=== PATIENT | male | born 1945 | race Caucasian/White ===

== ENCOUNTER 2016-06-30 10:54 | Inpatient (IN) | payer MEDICARE, BC ==
[~2016-06-30] VITALS: Ht 172.7 cm; Wt 114.0 kg
[2016-06-30] VITALS (12 sets, daily range): BP systolic 73–129; BP diastolic 41–62
[~2016-06-30 10:54] MED LIST: CEPH-264 PO; CIPR2.5D OU; FLUT16SP NS; FURO40TA4 PO; IPRA3AMP NEB; LISI-334 PO; METO25TA4 PO; MONT10TA9 PO; OXYC5TAB PO; POTA20TA4 PO
[2016-06-30] MEDS ORDERED: MULTIVITAMIN with MINERAL TABLET. PO STA (11:27)
[2016-06-30] MEDS ORDERED: THIAMINE 100 MG TABLET. PO STA (11:27)
[2016-06-30] MEDS ORDERED: fentaNYL PF VIAL 100 MCG/2 ML VIAL IV ONE (11:30)
[2016-06-30] MEDS ORDERED: ONDANSETRON PF 4 MG/2 ML VIAL. IV ONE (11:30)
[2016-06-30] MEDS ORDERED: MULTIVIT INFUSN,ADULT 4,VIT K 10 ML, FOLIC ACID 1 MG, THIAMINE 100 MG in IV NORMAL SALI... IV ONE (11:45)
[2016-06-30 11:52] LABS: BASO % 0 % (0-3); EOS % 1 % (0-3); HEMATOCRIT 39.3 % (39.0-53.0); HEMOGLOBIN 12.8 g/dL (13.0-17.5); LYMPH # 1.7 x10^3/uL (1.0-4.8); LYMPH % 26 % (24-48); MEAN CORPUSCULAR HEMOGLOBIN 33 pg (25-35); MEAN CORPUSCULAR HGB CONC 33 g/dL (31-37); MEAN CORPUSCULAR VOLUME 101 fL (79-100); MONO % 9 % (0-9); NEUT % 64 % (31-73); PLATELET COUNT 102 x10^3/uL (140-400); RED BLOOD COUNT 3.89 x10^6/uL (4.30-5.70); RED CELL DISTRIBUTION WIDTH 20.7 % (11.5-14.5); WHITE BLOOD COUNT 6.5 x10^3/uL (4.0-11.0)
[2016-06-30 12:01] LABS: PROTHROMBIN TIME PATIENT 12.9 SEC (11.7-14.0)
[2016-06-30 12:08] LABS: ALBUMIN 3.2 g/dL (3.4-5.0); ALBUMIN/GLOBULIN RATIO 0.6 (1.0-1.7); CALCIUM 9.3 mg/dL (8.5-10.1); CREATININE 3.7 mg/dL (0.7-1.3); GFR 16.4; MAGNESIUM 1.2 mg/dL (1.8-2.4); TOTAL BILIRUBIN 0.6 mg/dL (0.2-1.0); TOTAL PROTEIN 8.2 g/dL (6.4-8.2)
[2016-06-30 12:09] LABS: ETHANOL 35 mg/dL (0-10)
[2016-06-30 12:11] LABS: POTASSIUM 7.3 mmol/L (3.5-5.1)
[2016-06-30] MEDS ORDERED: IV NORMAL SALINE 1000ML BAG 1,000 ML IV ONE ×2 (12:30→17:00)
[2016-06-30] MEDS ORDERED: DEXTROSE 50% 25 GM / 50ML DISP.SYRIN. IV ONE (12:30)
[2016-06-30] MEDS ORDERED: ALBUTEROL SULFATE 2.5 MG/3 ML NEBU. NEB ONE (12:30)
[2016-06-30] MEDS ORDERED: CALCIUM GLUCONATE 1,000 MG in IV NORMAL SALINE 100ML 100 ML IV ONE (12:30)
[2016-06-30] MEDS ORDERED: CALCIUM GLUCONATE 100 MG/ML VIAL for DOSE IN MG. IVP ONE (12:30)
[2016-06-30] MEDS ORDERED: INSULIN REGULAR 100 UNIT/ML 10ML VIAL. IV ONE (12:30)
[2016-06-30] MEDS ORDERED: ONDANSETRON PF 4 MG/2 ML VIAL. IV PRN (12:45)
--- NOTE | 2016-06-30 12:50 | PHYS DOC ---
Past Medical History Past Medical History: Cancer, COPD, High Cholesterol, Hypertension, Other Additional Past Medical Histor: CA- LUNG,PROSTATE,COLON. HERNIA Past Surgical History: Colectomy, Tonsillectomy, Other Additional Past Surgical Histo: 1/3 left lung removed, ostomy, L THUMB Alcohol Use: Heavy Additional Information: PT REPORTS HE DRINKS A PINT TO A PINT AND A HALF DAILY, STATING HE HAS HAD ETOH TODAY. Drug Use: None Adult General Chief Complaint Chief Complaint: OTHER COMPLAINTS HPI HPI Patient is a 70 year old male brought by son for evaluation of increased rectal mucus diffuse body aches and weakness. Patient is an alcoholic. Drinks approximately a pint and a half a day and has continued drink alcohol with his last drink approximately 9 this morning. He says that he has had a poor appetite otherwise and has not eaten any food or drink anything besides alcohol in the past 2 days. He denies any fevers chills vomiting diarrhea dysuria cough chest pain shortness of breath or abdominal pain. He is in no obvious distress but slightly hypotensive but perfusing his extremities. Review of Systems Review of Systems Constitutional: Denies fever or chills [] Eyes: Denies change in visual acuity, redness, or eye pain [] HENT: Denies nasal congestion or sore throat [] Respiratory: Denies cough or shortness of breath [] Cardiovascular: No additional information not addressed in HPI [] GI: Denies abdominal pain. + nausea. No vomiting, bloody stools or diarrhea [] : Denies dysuria or hematuria [] Musculoskeletal: + myalgias and arthralgias Integument: Denies rash or skin lesions [] Neurologic: Denies headache, focal weakness or sensory changes [] Current Medications Current Medications Current Medications Medications (Trade) Dose Ordered Sig/[facility] Start Time Stop Time Status Last Admin Dose Admin Fentanyl Citrate (Fentanyl 2ml Vial) 50 mcg 1X ONCE 06/30/16 11:30 06/30/16 11:32 DC 06/30/16 11:52 50 MCG Multivitamins (Thera M Plus) 1 tab 1X STAT 06/30/16 11:27 06/30/16 11:28 UNV Multivitamins 10 ml/Folic Acid 1 mg/Thiamine HCl 100 mg/Sodium Chloride 1,011.2 ml @ 1,000 mls/ hr 1X ONCE 06/30/16 11:45 06/30/16 12:45 DC 06/30/16 11:54 1,000 MLS/HR Ondansetron HCl (Zofran) 8 mg 1X ONCE 06/30/16 11:30 06/30/16 11:32 DC 06/30/16 11:51 8 MG Thiamine Mononitrate (Vitamin B-1) 100 mg 1X STAT 06/30/16 11:27 06/30/16 11:28 UNV Allergies Allergies Allergies Coded Allergies Type Severity Reaction Last Updated Verified No Known Drug Allergies 06/29/15 No Physical Exam Physical Exam Constitutional: Chronically ill appearing male HENT: Normocephalic, atraumatic, bilateral external ears normal, oropharynx moist, no oral exudates, nose normal. [] Eyes: PERRLA, EOMI, conjunctiva normal, no discharge. [] Neck: Normal range of motion, no tenderness, supple, no stridor. [] Cardiovascular:Heart rate regular rhythm, no murmur [] Lungs & Thorax: Bilateral breath sounds clear to auscultation [] Abdomen: Ostomy in place with no stool and large midline hernia noted Skin: Warm, dry, no erythema, no rash. [] Back: No tenderness, no CVA tenderness. [] Extremities: No tenderness, no cyanosis, no clubbing, ROM intact, no edema. [] Neurologic: Alert and oriented X 3, normal motor function, normal sensory function, no focal deficits noted. [] Current Patient Data Vital Signs Vital Signs Date Time Temp Pulse Resp B/P (MAP) Pulse Ox O2 Delivery O2 Flow Rate FiO2 06/30/16 12:11 55 71/43 (52) Room Air 06/30/16 11:45 92 06/30/16 11:10 97.7 20 97.7 Lab Values Laboratory Tests Test 06/30/16 11:40 White Blood Count 6.5 x10^3/uL (4.0-11.0) Red Blood Count 3.89 x10^6/uL (4.30-5.70) L Hemoglobin 12.8 g/dL (13.0-17.5) L Hematocrit 39.3 % (39.0-53.0) Mean Corpuscular Volume 101 fL (79-100) H Mean Corpuscular Hemoglobin 33 pg (25-35) Mean Corpuscular Hemoglobin Concent 33 g/dL (31-37) Red Cell Distribution Width 20.7 % (11.5-14.5) H Platelet Count 102 x10^3/uL (140-400) L Neutrophils (%) (Auto) 64 % (31-73) Lymphocytes (%) (Auto) 26 % (24-48) Monocytes (%) (Auto) 9 % (0-9) Eosinophils (%) (Auto) 1 % (0-3) Basophils (%) (Auto) 0 % (0-3) Neutrophils # (Auto) 4.1 x10^3uL (1.8-7.7) Lymphocytes # (Auto) 1.7 x10^3/uL (1.0-4.8) Monocytes # (Auto) 0.6 x10^3/uL (0.0-1.1) Eosinophils # (Auto) 0.1 x10^3/uL (0.0-0.7) Basophils # (Auto) 0.0 x10^3/uL (0.0-0.2) Platelet Estimate Pending Prothrombin Time 12.9 SEC (11.7-14.0) Prothrombin Time INR 1.0 (0.8-1.1) PTT 26 SEC (24-38) Sodium Level 135 mmol/L (136-145) L Potassium Level 7.3 mmol/L (3.5-5.1) *H Chloride Level 102 mmol/L (98-107) Carbon Dioxide Level 18 mmol/L (21-32) L Anion Gap 15 (6-14) H Blood Urea Nitrogen 94 mg/dL (8-26) H Creatinine 3.7 mg/dL (0.7-1.3) H Estimated GFR (Cockcroft-Gault) 16.4 BUN/Creatinine Ratio 25 (6-20) H Glucose Level 88 mg/dL (70-99) Lactic Acid Level 2.6 mmol/L (0.4-2.0) H Calcium Level 9.3 mg/dL (8.5-10.1) Magnesium Level 1.2 mg/dL (1.8-2.4) L Total Bilirubin 0.6 mg/dL (0.2-1.0) Aspartate Amino Transferase (AST) 28 U/L (15-37) Alanine Aminotransferase (ALT) 25 U/L (16-63) Alkaline Phosphatase 68 U/L (46-116) Creatine Kinase 65 U/L (39-308) Troponin I Quantitative < 0.017 ng/mL (0.000-0.055) HP-Dbw-V-Type Natriuretic Peptide 84790 pg/mL (0-124) H Total Protein 8.2 g/dL (6.4-8.2) Albumin 3.2 g/dL (3.4-5.0) L Albumin/Globulin Ratio 0.6 (1.0-1.7) L Lipase 384 U/L (73-393) Thyroid Stimulating Hormone (TSH) 1.945 uIU/mL (0.358-3.74) Salicylates Level 3.7 mg/dL (2.8-20.0) Salicylate Last Dose Date Unknown Salicylate Last Dose Time Unknown Acetaminophen Level 4.5 mcg/ml (10-30) L Acetaminophen Last Dose Date Unknown Acetaminophen Last Dose Time Unknown Ethyl Alcohol Level 35 mg/dL (0-10) H Laboratory Tests 06/30/16 11:40 Laboratory Tests 06/30/16 11:40 EKG EKG Sinus rhythm at 56 bpm there is low voltage however T waves appear peaked in leads V4 V5 and V6 that his QRS is normal. Radiology/Procedures Radiology/Procedures [] Course & Med Decision Making Course & Med Decision Making Patient is critically ill and is dehydrated with acute renal failure. He does have some EKG changes so he is going to be treated aggressively with calcium insulin albuterol aggressive IV fluids. He will be admitted to the ICU with a nephrology consult. Patient continues to be slightly hypotensive but is perfusing his extremities well. Patient admitted in critical condition. Critical care time of 35 minutes. Dragon Disclaimer Dragon Disclaimer This electronic medical record was generated, in whole or in part, using a voice recognition dictation system. Departure Departure Impression: Primary Impression: Hyperkalemia Additional Impressions: ARF (acute renal failure) Hypomagnesemia Lactic acid acidosis Hypotension Disposition: ADMITTED INPATIENT Admitting Physician: Clare Man Condition: CRITICAL Referrals: CLARE MAN MD (PCP) Problem Qualifiers KERRI HESTER DO June 30, 2016 12:50
--- NOTE | 2016-06-30 12:52 | ACF ---
Admission Forms Criteria HYPONATREMIA; HYPERNATREMIA; HYPOKALEMIA; HYPERKALEMIA; HYPOCALCEMIA; HYPERCALCEMIA Clinical Indications for Inpatient Care (Place 'X' for any and all applicable criteria): Ongoing inpatient care may be indicated for ANY ONE of the following [G](1)(2)(3 )(5): [ ]I. Hyponatremia with ANY ONE of the following: [ ]a) Sodium less than 130 mEq/L (mmol/L) (new) (6)(22) [ ]b) Sodium less than 135 mEq/L (mmol/L) with ANY ONE of the following: [ ]i) Severe medical etiology requiring inpatient management (eg, heart failure, hypovolemia) [ ]ii) Altered mental status [ ]iii) Seizures [ ]II. Hypernatremia with ANY ONE of the following: [ ]a) Sodium greater than 155 mEq/L (mmol/L) [ ]b) Sodium greater than 150 mEq/L (mmol/L) with ANY ONE of the following: [ ] i) Altered mental status [ ]ii) Seizures [ ]iii) Severe medical etiology (eg, hypovolemia, diabetes insipidus) [ ]iv) Severe weakness [ ]v) Severe medical etiology (eg, hemolysis, infection, drug overdose) [ ]III. Hypokalemia with ANY ONE of the following: [ ]a) Potassium less than 2.5 mEq/L (mmol/L) despite outpatient and emergency treatment [ ]b) Potassium less than 3.0 mEq/L (mmol/L) with ANY ONE of the following: [ ]i) Weakness [ ]ii) Cardiac abnormality (eg, arrhythmia, conduction disturbance) [ ]iii) Cardiac ischemia [ ]iv) Ileus [ ]v) Ongoing medical cause requiring inpatient management. ( e.g., acute renal wasting, SIADH) [ ]vi) Other severe symptoms [X] IV. Hyperkalemia with ANY ONE of the following: [X]a) Potassium greater than 6.5 mEq/L (mmol/L) [ ]b) Potassium greater than 5 mEq/L (mmol/L) with ANY ONE of the following: [ ]i) Severe ECG findings [H] [ ]ii) Acute worsening of renal failure (creatinine greater than 2.5 mg/dL (221 micromoles/L) or significant elevation for age and size) [ ] V. Hypocalcemia with ANY ONE of the following: [ ]a) Calcium less than 7 mg/dL (1.75 mmol/L) despite outpatient and emergency treatment(19) [ ]b) Calcium less than 8 mg/dL (2 mmol/L) with significant symptoms or findings; examples include: [ ]i) Cardiac abnormality (eg, arrhythmia or conduction disturbance) [ ]ii) Altered mental status [ ]iii) Seizures [ ]iv) Breathing difficulty [ ]v) Muscle spasms [ ]. Hypercalcemia with ANY ONE of the following: [ ]a) Calcium greater than 14 mg/dL (3.5 mmol/L) [ ]b) Calcium greater than 12 mg/dL (3 mmol/L) with ANY ONE of the following: [ ]i) Significant dehydration or hypovolemia as indicated by ANY ONE of the following(2): [ ]1. Clinically significant dehydration as indicated by ANY ONE of the following: [ ]A. Acute loss of weight from baseline (5% of body weight in adults, 9% in pediatric patients) [ ]B. Hemodynamic instability [ ]C. Acute renal failure [ ]D. Serum sodium greater than 150 mEq/L (mmol/L) [ ]2) Dehydration that is persistent indicated by ALL of the following: [ ]A. Oral rehydration therapy not tolerated or insufficient to adequately correct dehydration [ ]B. Appropriate intravenous treatment (eg, fluids ) does not readily correct dehydration ie, after 12 to 24 hours of treatment) [ ]ii) Significant symptoms or findings; examples include: [ ]1) Altered mental status [ ]2) Cardiac abnormality (eg, arrhythmia, conduction disturbance) [ ]3) Cardiac abnormality (eg, arrhythmia, conduction disturbance) The original [employer] [facility] content created by [employer] [facility] has been revised. The portions of the content which have been revised are identified through the use of italic text or in bold, and [facility] has neither reviewed nor approved the modified material. All other unmodified content is copyright [facility] [employer] Please see references footnoted in the original [facility] [email or web address] edition 2016 Admission Criteria Met?: Yes JAK ROLDAN June 30, 2016 12:52
[2016-06-30 13:13] LABS: BILIRUBIN,URINE MODERATE (NEG); GLUCOSE,URINE NEGATIVE (NEG); NITRITE,URINE NEGATIVE (NEG); PH,URINE 5.5; PROTEIN,URINE 100 mg/dL (NEG-TRACE)
[2016-06-30 13:19] LABS: BARBITURATES NEG (NEG); BENZODIAZEPINES NEG (NEG); CANNABINOIDS NEG (NEG); COCAINE NEG (NEG); METHADONE NEG (NEG); OPIATES NEG (NEG); PHENCYCLIDINE NEG (NEG)
[2016-06-30 13:37] LABS: BACTERIA,URINE 0 /HPF (0-FEW); RBC,URINE 0 /HPF (0-2)
[2016-06-30 13:38] LABS: SQUAMOUS EPITHELIAL CELL,UR FEW /LPF
[2016-06-30] MEDS: IV NORMAL SALINE 1000ML BAG 1,000 ML IV SCH ×3 (14:17→23:29)
[2016-06-30] MEDS ORDERED: PNEUMOCOCCAL VAX SCREEN BY RX. MC ONE (14:45)
[2016-06-30] MEDS: SODIUM BICARBONATE VIAL 50 MEQ in IV 1/2 NORMAL SALINE 1,000 ML IV SCH ×2 (14:52→22:32)
--- NOTE | 2016-06-30 15:13 | EKG ---
[facility] [address] [place] [id number] Test Date: 2016-06-30 Test Time: 11:33:52 Pat Name: DIXON PRINCE Department: Room: 102 1 Gender: M [employer] T[employer]: : 1945 Requested By: KERRI HESTER Order Number: [id number] Reading MD: Cat Marshall Measurements Intervals [place] Rate: 56 P: 39 TN: 136 QRS: -48 QRSD: 82 T: 27 QT: 416 QTc: 404 Interpretive Statements SINUS RHYTHM ABNORMAL LEFT AXIS DEVIATION LOW LIMB LEAD VOLTAGE LEFT ANTERIOR FASCICULAR BLOCK Electronically Signed On 07-02-2016 21:20:35 CDT by Cat Marshall
[2016-06-30] MEDS ORDERED: PNEUMOC CONJ VACC 23-VALENT 0.5 ML VIAL. VAX IM ONE (15:30)
[2016-06-30] MEDS ORDERED: LORazepam 1 MG TABLET PO SCH (15:30)
[2016-06-30] MEDS ORDERED: chlordiazePOXIDE HCL 25 MG CAPSULE PO SCH (16:00)
[2016-06-30 16:23] LABS: ANISOCYTOSIS MOD; PLT ESTIMATE DECREASED (ADEQUATE); POLYCHROMASIA SLIGHT
[2016-06-30] MEDS ORDERED: NOREPINEPHRIN PREMIX 250 ML IV PRN (17:00)
[2016-06-30] MEDS: fentaNYL PF VIAL 100 MCG/2 ML VIAL IV PRN ×2 (17:18→21:34)
[2016-06-30] MEDS: LORazepam 1 MG TABLET PO SCH ×2 (17:58→23:29)
[2016-07-01] VITALS (25 sets, daily range): BP systolic 64–134; BP diastolic 40–72
[2016-07-01] MEDS: fentaNYL PF VIAL 100 MCG/2 ML VIAL IV PRN ×3 (00:06→22:41)
[2016-07-01] MEDS: IV NORMAL SALINE 1000ML BAG 1,000 ML IV SCH ×2 (04:55→09:00)
[2016-07-01] MEDS: SODIUM BICARBONATE VIAL 50 MEQ in IV 1/2 NORMAL SALINE 1,000 ML IV SCH ×3 (05:34→20:11)
[2016-07-01 05:41] LABS: BASO % 0 % (0-3); EOS % 3 % (0-3); HEMOGLOBIN 10.9 g/dL (13.0-17.5); LYMPH # 1.3 x10^3/uL (1.0-4.8); LYMPH % 29 % (24-48); MEAN CORPUSCULAR HEMOGLOBIN 34 pg (25-35); MEAN CORPUSCULAR HGB CONC 34 g/dL (31-37); MEAN CORPUSCULAR VOLUME 99 fL (79-100); MONO % 8 % (0-9); NEUT % 61 % (31-73); PLATELET COUNT 74 x10^3/uL (140-400); RED BLOOD COUNT 3.22 x10^6/uL (4.30-5.70); RED CELL DISTRIBUTION WIDTH 20.4 % (11.5-14.5); WHITE BLOOD COUNT 4.5 x10^3/uL (4.0-11.0)
[2016-07-01] MEDS: LORazepam 1 MG TABLET PO SCH ×3 (05:41→17:23)
[2016-07-01 05:52] LABS: ALBUMIN 2.6 g/dL (3.4-5.0); ALBUMIN/GLOBULIN RATIO 0.7 (1.0-1.7); GFR 33.4; TOTAL BILIRUBIN 0.5 mg/dL (0.2-1.0); TOTAL PROTEIN 6.6 g/dL (6.4-8.2)
[2016-07-01 06:05] LABS: POTASSIUM 5.6 mmol/L (3.5-5.1)
[2016-07-01] MEDS ORDERED: MAGNESIUM SULFATE 2GM 50 ML IV ONE (08:30)
[2016-07-01] MEDS: MULTIVIT INFUSN,ADULT 4,VIT K 10 ML, THIAMINE 100 MG, FOLIC ACID 1 MG in IV NORMAL SALI... IV SCH ×2 (08:45→09:15)
[2016-07-01] MEDS ORDERED: THIAMINE 100 MG in IV NORMAL SALINE 50ML 50 ML IV SCH (09:00)
--- NOTE | 2016-07-01 10:46 | PDOC2 ---
CONSULT Date of Consult Date of Consult DATE: 07/01/16 TIME: 10:41 Reason for Consult Reason for Consult: FABIOLA AND HIGH K Referring Physician Referring Physician: MAGDA Identification/Chief Complaint Chief Complaint WEAKNESS Source Source: Chart review History of Present Illness Reason for Visit: THIS IS A 70 YR OLD ADMITTED WITH FABIOLA AND DEHYDRATION. COMPLAINED OF WEAKNESS. PT BROUGHT IN BY HIS SON. PT IS AN ALCOHOLIC AND DRINKS DAILY. APPARENTLY HAS NOT BEEN EATING BUT DRINKING DAILY. ON ADMIT HE APPEARED VERY DEHYDRATED. LABS SHOWED FABIOLA WITH CR OF 3.7 AND HYPERKALEMIA. NO CKD NOTED. HE WAS ALSO SOMEWHAT HYPOTENSIVE ON ADMIT Past Medical History Cardiovascular: No pertinent hx Pulmonary: COPD CENTRAL NERVOUS SYSTEM: Other GI: Other Heme/Onc: Cancer Hepatobiliary: No pertinent hx Psych: Addictions Musculoskeletal: Swelling, Other Rheumatologic: No pertinent hx Infectious disease: No pertinent hx Renal/: Prostate Ca. Endocrine: No pertinent hx Past Surgical History Past Surgical History: Tonsillectomy, Colectomy Family History Family History: Hypertension Social History ALCOHOL: heavy Drugs: None Lives: with Family Current Problem List Problem List Problems Medical Problems: (1) ARF (acute renal failure) Status: Acute (2) Hypomagnesemia Status: Acute (3) Hypotension Status: Acute (4) Lactic acid acidosis Status: Acute Current Medications Current Medications Current Medications Multivitamins 10 ml/Folic Acid 1 mg/Thiamine HCl 100 mg/Sodium Chloride 1,011.2 ml @ 1,000 mls/ hr 1X ONCE IV Last administered on 06/30/16 11:54; Start at 11:45; Stop 06/30/16 at 12:45; Status DC Thiamine Mononitrate (Vitamin B-1) 100 mg 1X STAT PO ; Start 06/30/16 at 11:27 ; Stop 06/30/16 at 11:28; Status UNV Multivitamins (Thera M Plus) 1 tab 1X STAT PO ; Start 06/30/16 at 11:27; Stop 06/30/16 at 11:28; Status UNV Ondansetron HCl (Zofran) 8 mg 1X ONCE IV Last administered on 06/30/16 11:51 ; Start 06/30/16 at 11:30; Stop 06/30/16 at 11:32; Status DC Fentanyl Citrate (Fentanyl 2ml Vial) 50 mcg 1X ONCE IV Last administered on 11:52; Start 06/30/16 at 11:30; Stop 06/30/16 at 11:32; Status DC Albuterol Sulfate (Ventolin Neb Soln) 2.5 mg 1X ONCE NEB Last administered on 06/30/16 13:02; Start 06/30/16 at 12:30; Stop 06/30/16 at 12:31; Status DC Sodium Chloride 1,000 ml @ 1,000 mls/hr 1X ONCE IV Last administered on 13:13; Start 06/30/16 at 12:30; Stop 06/30/16 at 13:29; Status DC Dextrose (Dextrose 50%-Water Syringe) 25 gm 1X ONCE IV Last administered on 12:47; Start 06/30/16 at 12:30; Stop 06/30/16 at 12:31; Status DC Insulin Human Regular (NovoLIN R VIAL) 10 unit 1X ONCE IV Last administered on 06/30/16 12:50; Start 06/30/16 at 12:30; Stop 06/30/16 at 12:31; Status DC Calcium Gluconate (Calcium Gluconate) 1,000 mg 1X ONCE IVP ; Start 06/30/16 at 12:30; Stop 06/30/16 at 12:31; Status UNV Calcium Gluconate 1000 mg/Sodium Chloride 110 ml @ 440 mls/hr 1X ONCE IV Last administered on 06/30/16 12:51; Start 06/30/16 at 12:30; Stop 06/30/16 at 12:44; Status DC Ondansetron HCl (Zofran) 4 mg PRN Q8HRS PRN IV NAUSEA/VOMITING Last administered on 06/30/16 15:09; Start 06/30/16 at 12:45; Stop 07/01/16 at 12:44 Fentanyl Citrate (Fentanyl 2ml Vial) 50 mcg PRN Q2HR PRN IV PAIN Last administered on 07/01/16 03:55; Start 06/30/16 at 12:45; Stop 07/01/16 at 12:44 Sodium Chloride 1,000 ml @ 200 mls/hr Q5H IV Last administered on 07/01/16 04 :55; Start 06/30/16 at 13:00; Stop 5/21/17 at 10:25; Status DC Sodium Bicarbonate 50 meq/Sodium Chloride 1,050 ml @ 150 mls/hr Q7H IV Last administered on 07/01/16 05:34; Start 06/30/16 at 14:30 Pneumococcal Polyvalent Vaccine (Do NOT chart on this placeholder) 1 each 1X ONCE MC ; Start 06/30/16 at 14:45; Stop 06/30/16 at 15:17; Status DC Pneumococcal Polyvalent Vaccine (Pneumovax 23) 0.5 ml ONCE ONCE VAX IM ; Start 06/30/16 at 15:30; Stop 06/30/16 at 15:31; Status DC Multivitamins 10 ml/Thiamine HCl 100 mg/Folic Acid 1 mg/Sodium Chloride 1,011.2 ml @ 100 mls/ hr DAILY IV Last administered on 07/01/16 09:15; Start at 09:00; Stop 07/06/16 at 08:59 Multivitamins (Thera M Plus) 1 tab DAILY PO ; Start 07/06/16 at 09:00 Folic Acid (Folic Acid) 1 mg DAILY PO ; Start 07/06/16 at 09:00 Thiamine HCl 100 mg/Sodium Chloride 51 ml @ 100 mls/hr DAILY IV ; Start at 09:00; Stop 07/06/16 at 08:59; Status UNV Lorazepam (Ativan) 2 mg Q6H PO ; Start 06/30/16 at 15:30; Stop 06/30/16 at 16:28 ; Status DC Chlordiazepoxide (Librium) 25 mg Q6H PO ; Start 06/30/16 at 16:00; Stop at 18:13; Status DC Thiamine Mononitrate (Vitamin B-1) 100 mg DAILY PO ; Start 07/06/16 at 09:00 Norepinephrine Bitartrate 250 ml @ 0 mls/hr CONT PRN IV SEE I/O RECORD Last administered on 06/30/16 17:37; Start 06/30/16 at 17:00 Sodium Chloride 1,000 ml @ 1,000 mls/hr 1X ONCE IV Last administered on 17:29; Start 06/30/16 at 17:00; Stop 06/30/16 at 17:59; Status DC Lorazepam (Ativan) 2 mg Q6H PO Last administered on 07/01/16 05:41; Start at 18:00; Stop 07/02/16 at 00:01 Magnesium Sulfate/ Dextrose 50 ml @ 25 mls/hr 1X ONCE IV Last administered on 07/01/16 09:48; Start 07/01/16 at 08:30; Stop 07/01/16 at 10:29; Status DC Active Scripts Active Klor-Con M20 (Potassium Chloride) 20 Meq Tab.er.prt 20 Meq PO BIDWMEALS Montelukast Sodium Tablet (Montelukast Sodium) 10 Mg Tablet 10 Mg PO QHS Metoprolol Tartrate 25 Mg Tablet 50 Mg PO BID Lisinopril 20 Mg Tablet 20 Mg PO DAILY Furosemide 40 Mg Tablet 40 Mg PO DAILY Allergies Allergies: Coded Allergies: No Known Drug Allergies (Unverified , 06/29/15) ROS Review of System SOMNOLENT, UNABLE TO OBTAIN Physical Exam General: No acute distress HEENT: Atraumatic, PERRLA, Other (DRY MUCOSA) Lungs: Clear to auscultation Heart: Regular rate, Normal S1, Normal S2 Abdomen: Normal bowel sounds, Soft, No tenderness Extremities: No clubbing Neuro: Other (SOMNOLENT) Psych/Mental Status: Other (SOMNOLENT) MUSCULOSKELETAL: No deformity Vitals VITALS Vital Signs Date Time Temp Pulse Resp B/P (MAP) Pulse Ox O2 Delivery O2 Flow Rate FiO2 07/01/16 10:34 94 19 64/40 (48) 98 Nasal Cannula 3.0 07/01/16 07:35 98.0 98.0 Labs Labs Laboratory Tests Test 06/30/16 11:40 06/30/16 13:00 06/30/16 14:10 06/30/16 17:20 White Blood Count 6.5 x10^3/uL (4.0-11.0) Red Blood Count 3.89 x10^6/uL (4.30-5.70) Hemoglobin 12.8 g/dL (13.0-17.5) Hematocrit 39.3 % (39.0-53.0) Mean Corpuscular Volume 101 fL (79-100) Mean Corpuscular Hemoglobin 33 pg (25-35) Mean Corpuscular Hemoglobin Concent 33 g/dL (31-37) Red Cell Distribution Width 20.7 % (11.5-14.5) Platelet Count 102 x10^3/uL (140-400) Neutrophils (%) (Auto) 64 % (31-73) Lymphocytes (%) (Auto) 26 % (24-48) Monocytes (%) (Auto) 9 % (0-9) Eosinophils (%) (Auto) 1 % (0-3) Basophils (%) (Auto) 0 % (0-3) Neutrophils # (Auto) 4.1 x10^3uL (1.8-7.7) Lymphocytes # (Auto) 1.7 x10^3/uL (1.0-4.8) Monocytes # (Auto) 0.6 x10^3/uL (0.0-1.1) Eosinophils # (Auto) 0.1 x10^3/uL (0.0-0.7) Basophils # (Auto) 0.0 x10^3/uL (0.0-0.2) Platelet Estimate Decreased (ADEQUATE) Polychromasia Slight Anisocytosis Mod Macrocytosis Slight Prothrombin Time 12.9 SEC (11.7-14.0) Prothromb Time International Ratio 1.0 (0.8-1.1) Activated Partial Thromboplast Time 26 SEC (24-38) Sodium Level 135 mmol/L (136-145) Potassium Level 7.3 mmol/L (3.5-5.1) 6.0 mmol/L (3.5-5.1) 6.1 mmol/L (3.5-5.1) Chloride Level 102 mmol/L (98-107) Carbon Dioxide Level 18 mmol/L (21-32) Anion Gap 15 (6-14) Blood Urea Nitrogen 94 mg/dL (8-26) Creatinine 3.7 mg/dL (0.7-1.3) Estimated GFR (Cockcroft-Gault) 16.4 BUN/Creatinine Ratio 25 (6-20) Glucose Level 88 mg/dL (70-99) Lactic Acid Level 2.6 mmol/L (0.4-2.0) Calcium Level 9.3 mg/dL (8.5-10.1) Magnesium Level 1.2 mg/dL (1.8-2.4) Total Bilirubin 0.6 mg/dL (0.2-1.0) Aspartate Amino Transf (AST/SGOT) 28 U/L (15-37) Alanine Aminotransferase (ALT/SGPT) 25 U/L (16-63) Alkaline Phosphatase 68 U/L (46-116) Creatine Kinase 65 U/L (39-308) Troponin I Quantitative < 0.017 ng/mL (0.000-0.055) AD-Ycf-L-Type Natriuretic Peptide 40405 pg/mL (0-124) Total Protein 8.2 g/dL (6.4-8.2) Albumin 3.2 g/dL (3.4-5.0) Albumin/Globulin Ratio 0.6 (1.0-1.7) Lipase 384 U/L (73-393) Thyroid Stimulating Hormone (TSH) 1.945 uIU/mL (0.358-3.74) Salicylates Level 3.7 mg/dL (2.8-20.0) Salicylate Last Dose Date Unknown Salicylate Last Dose Time Unknown Acetaminophen Level 4.5 mcg/ml (10-30) Acetaminophen Last Dose Date Unknown Acetaminophen Last Dose Time Unknown Ethyl Alcohol Level 35 mg/dL (0-10) Urine Collection Type Unknown Urine Color Yellow Urine Clarity Clear Urine pH 5.5 Urine Specific [place] 1.020 Urine Protein 100 mg/dL (NEG-TRACE) Urine Glucose (UA) Negative mg/dL (NEG) Urine Ketones (Stick) Trace mg/dL (NEG) Urine Blood Trace (NEG) Urine Nitrite Negative (NEG) Urine Bilirubin Moderate (NEG) Urine Urobilinogen Dipstick 1.0 mg/dL (0.2 mg/dL) Urine Leukocyte Esterase Negative (NEG) Urine RBC 0 /HPF (0-2) Urine WBC 1-4 /HPF (0-4) Urine Squamous Epithelial Cells Few /LPF Urine Transitional Epithelial Cells Few /LPF Urine Amorphous Sediment Present /HPF Urine Bacteria 0 /HPF (0-FEW) Urine Hyaline Casts Moderate /HPF Urine Granular Casts Few /HPF Urine Opiates Screen Neg (NEG) Urine Methadone Screen Neg (NEG) Urine Barbiturates Neg (NEG) Urine Phencyclidine Screen Neg (NEG) Urine Amphetamine/Methamphetamine Neg (NEG) Urine Benzodiazepines Screen Neg (NEG) Urine Cocaine Screen Neg (NEG) Urine Cannabinoids Screen Neg (NEG) Urine Ethyl Alcohol Pos (NEG) Test 06/30/16 18:59 07/01/16 05:10 Lactic Acid Level 1.1 mmol/L (0.4-2.0) White Blood Count 4.5 x10^3/uL (4.0-11.0) Red Blood Count 3.22 x10^6/uL (4.30-5.70) Hemoglobin 10.9 g/dL (13.0-17.5) Hematocrit 32.0 % (39.0-53.0) Mean Corpuscular Volume 99 fL (79-100) Mean Corpuscular Hemoglobin 34 pg (25-35) Mean Corpuscular Hemoglobin Concent 34 g/dL (31-37) Red Cell Distribution Width 20.4 % (11.5-14.5) Platelet Count 74 x10^3/uL (140-400) Neutrophils (%) (Auto) 61 % (31-73) Lymphocytes (%) (Auto) 29 % (24-48) Monocytes (%) (Auto) 8 % (0-9) Eosinophils (%) (Auto) 3 % (0-3) Basophils (%) (Auto) 0 % (0-3) Neutrophils # (Auto) 2.7 x10^3uL (1.8-7.7) Lymphocytes # (Auto) 1.3 x10^3/uL (1.0-4.8) Monocytes # (Auto) 0.4 x10^3/uL (0.0-1.1) Eosinophils # (Auto) 0.1 x10^3/uL (0.0-0.7) Basophils # (Auto) 0.0 x10^3/uL (0.0-0.2) Sodium Level 137 mmol/L (136-145) Potassium Level 5.6 mmol/L (3.5-5.1) Chloride Level 106 mmol/L (98-107) Carbon Dioxide Level 21 mmol/L (21-32) Anion Gap 10 (6-14) Blood Urea Nitrogen 69 mg/dL (8-26) Creatinine 2.0 mg/dL (0.7-1.3) Estimated GFR (Cockcroft-Gault) 33.4 BUN/Creatinine Ratio 35 (6-20) Glucose Level 97 mg/dL (70-99) Calcium Level 8.0 mg/dL (8.5-10.1) Magnesium Level 1.0 mg/dL (1.8-2.4) Total Bilirubin 0.5 mg/dL (0.2-1.0) Aspartate Amino Transf (AST/SGOT) 25 U/L (15-37) Alanine Aminotransferase (ALT/SGPT) 21 U/L (16-63) Alkaline Phosphatase 54 U/L (46-116) Total Protein 6.6 g/dL (6.4-8.2) Albumin 2.6 g/dL (3.4-5.0) Albumin/Globulin Ratio 0.7 (1.0-1.7) Laboratory Tests Test 06/30/16 11:40 06/30/16 13:00 06/30/16 14:10 06/30/16 17:20 White Blood Count 6.5 x10^3/uL (4.0-11.0) Red Blood Count 3.89 x10^6/uL (4.30-5.70) Hemoglobin 12.8 g/dL (13.0-17.5) Hematocrit 39.3 % (39.0-53.0) Mean Corpuscular Volume 101 fL (79-100) Mean Corpuscular Hemoglobin 33 pg (25-35) Mean Corpuscular Hemoglobin Concent 33 g/dL (31-37) Red Cell Distribution Width 20.7 % (11.5-14.5) Platelet Count 102 x10^3/uL (140-400) Neutrophils (%) (Auto) 64 % (31-73) Lymphocytes (%) (Auto) 26 % (24-48) Monocytes (%) (Auto) 9 % (0-9) Eosinophils (%) (Auto) 1 % (0-3) Basophils (%) (Auto) 0 % (0-3) Neutrophils # (Auto) 4.1 x10^3uL (1.8-7.7) Lymphocytes # (Auto) 1.7 x10^3/uL (1.0-4.8) Monocytes # (Auto) 0.6 x10^3/uL (0.0-1.1) Eosinophils # (Auto) 0.1 x10^3/uL (0.0-0.7) Basophils # (Auto) 0.0 x10^3/uL (0.0-0.2) Platelet Estimate Decreased (ADEQUATE) Polychromasia Slight Anisocytosis Mod Macrocytosis Slight Prothrombin Time 12.9 SEC (11.7-14.0) Prothromb Time International Ratio 1.0 (0.8-1.1) Activated Partial Thromboplast Time 26 SEC (24-38) Sodium Level 135 mmol/L (136-145) Potassium Level 7.3 mmol/L (3.5-5.1) 6.0 mmol/L (3.5-5.1) 6.1 mmol/L (3.5-5.1) Chloride Level 102 mmol/L (98-107) Carbon Dioxide Level 18 mmol/L (21-32) Anion Gap 15 (6-14) Blood Urea Nitrogen 94 mg/dL (8-26) Creatinine 3.7 mg/dL (0.7-1.3) Estimated GFR (Cockcroft-Gault) 16.4 BUN/Creatinine Ratio 25 (6-20) Glucose Level 88 mg/dL (70-99) Lactic Acid Level 2.6 mmol/L (0.4-2.0) Calcium Level 9.3 mg/dL (8.5-10.1) Magnesium Level 1.2 mg/dL (1.8-2.4) Total Bilirubin 0.6 mg/dL (0.2-1.0) Aspartate Amino Transf (AST/SGOT) 28 U/L (15-37) Alanine Aminotransferase (ALT/SGPT) 25 U/L (16-63) Alkaline Phosphatase 68 U/L (46-116) Creatine Kinase 65 U/L (39-308) Troponin I Quantitative < 0.017 ng/mL (0.000-0.055) WE-Xbg-A-Type Natriuretic Peptide 61047 pg/mL (0-124) Total Protein 8.2 g/dL (6.4-8.2) Albumin 3.2 g/dL (3.4-5.0) Albumin/Globulin Ratio 0.6 (1.0-1.7) Lipase 384 U/L (73-393) Thyroid Stimulating Hormone (TSH) 1.945 uIU/mL (0.358-3.74) Salicylates Level 3.7 mg/dL (2.8-20.0) Salicylate Last Dose Date Unknown Salicylate Last Dose Time Unknown Acetaminophen Level 4.5 mcg/ml (10-30) Acetaminophen Last Dose Date Unknown Acetaminophen Last Dose Time Unknown Ethyl Alcohol Level 35 mg/dL (0-10) Urine Collection Type Unknown Urine Color Yellow Urine Clarity Clear Urine pH 5.5 Urine Specific [place] 1.020 Urine Protein 100 mg/dL (NEG-TRACE) Urine Glucose (UA) Negative mg/dL (NEG) Urine Ketones (Stick) Trace mg/dL (NEG) Urine Blood Trace (NEG) Urine Nitrite Negative (NEG) Urine Bilirubin Moderate (NEG) Urine Urobilinogen Dipstick 1.0 mg/dL (0.2 mg/dL) Urine Leukocyte Esterase Negative (NEG) Urine RBC 0 /HPF (0-2) Urine WBC 1-4 /HPF (0-4) Urine Squamous Epithelial Cells Few /LPF Urine Transitional Epithelial Cells Few /LPF Urine Amorphous Sediment Present /HPF Urine Bacteria 0 /HPF (0-FEW) Urine Hyaline Casts Moderate /HPF Urine Granular Casts Few /HPF Urine Opiates Screen Neg (NEG) Urine Methadone Screen Neg (NEG) Urine Barbiturates Neg (NEG) Urine Phencyclidine Screen Neg (NEG) Urine Amphetamine/Methamphetamine Neg (NEG) Urine Benzodiazepines Screen Neg (NEG) Urine Cocaine Screen Neg (NEG) Urine Cannabinoids Screen Neg (NEG) Urine Ethyl Alcohol Pos (NEG) Test 06/30/16 18:59 07/01/16 05:10 Lactic Acid Level 1.1 mmol/L (0.4-2.0) White Blood Count 4.5 x10^3/uL (4.0-11.0) Red Blood Count 3.22 x10^6/uL (4.30-5.70) Hemoglobin 10.9 g/dL (13.0-17.5) Hematocrit 32.0 % (39.0-53.0) Mean Corpuscular Volume 99 fL (79-100) Mean Corpuscular Hemoglobin 34 pg (25-35) Mean Corpuscular Hemoglobin Concent 34 g/dL (31-37) Red Cell Distribution Width 20.4 % (11.5-14.5) Platelet Count 74 x10^3/uL (140-400) Neutrophils (%) (Auto) 61 % (31-73) Lymphocytes (%) (Auto) 29 % (24-48) Monocytes (%) (Auto) 8 % (0-9) Eosinophils (%) (Auto) 3 % (0-3) Basophils (%) (Auto) 0 % (0-3) Neutrophils # (Auto) 2.7 x10^3uL (1.8-7.7) Lymphocytes # (Auto) 1.3 x10^3/uL (1.0-4.8) Monocytes # (Auto) 0.4 x10^3/uL (0.0-1.1) Eosinophils # (Auto) 0.1 x10^3/uL (0.0-0.7) Basophils # (Auto) 0.0 x10^3/uL (0.0-0.2) Sodium Level 137 mmol/L (136-145) Potassium Level 5.6 mmol/L (3.5-5.1) Chloride Level 106 mmol/L (98-107) Carbon Dioxide Level 21 mmol/L (21-32) Anion Gap 10 (6-14) Blood Urea Nitrogen 69 mg/dL (8-26) Creatinine 2.0 mg/dL (0.7-1.3) Estimated GFR (Cockcroft-Gault) 33.4 BUN/Creatinine Ratio 35 (6-20) Glucose Level 97 mg/dL (70-99) Calcium Level 8.0 mg/dL (8.5-10.1) Magnesium Level 1.0 mg/dL (1.8-2.4) Total Bilirubin 0.5 mg/dL (0.2-1.0) Aspartate Amino Transf (AST/SGOT) 25 U/L (15-37) Alanine Aminotransferase (ALT/SGPT) 21 U/L (16-63) Alkaline Phosphatase 54 U/L (46-116) Total Protein 6.6 g/dL (6.4-8.2) Albumin 2.6 g/dL (3.4-5.0) Albumin/Globulin Ratio 0.7 (1.0-1.7) Assessment/Plan Assessment/Plan IMP FABIOLA WITH NO CKD HX DEHYDRATION HYPOTENSION ALCOHOL ABUSE HYPERKALEMIA LOW MAG OSTOMY HX PLAN HCO3 GTT DAILY BANANA BAG REPLACE MAG EXPECT FULL RENAL RECOVERY HOLD HOME MEDS. LASIX, KCL AND LISINOPRIL KASHMIR MANZO MD July 01, 2016 10:46
--- NOTE | 2016-07-01 12:26 | PDOC ---
OBJECTIVE Vital Signs Vital Signs Date Time Temp Pulse Resp B/P (MAP) Pulse Ox O2 Delivery O2 Flow Rate FiO2 07/01/16 10:45 82 17 114/61 (78) 98 Nasal Cannula 3.0 07/01/16 10:34 94 19 64/40 (48) 98 Nasal Cannula 3.0 07/01/16 10:15 94 19 90/40 (57) 98 Nasal Cannula 3.0 07/01/16 10:00 95 19 93/47 (62) 96 Nasal Cannula 3.0 07/01/16 08:20 96 19 126/58 (80) 96 Nasal Cannula 3.0 07/01/16 08:00 Nasal Cannula 3.0 07/01/16 07:35 98.0 110 19 116/55 (75) 98 Nasal Cannula 3.0 98.0 07/01/16 07:00 102 18 100/54 (69) 96 Nasal Cannula 3.0 07/01/16 06:00 111 19 111/52 (71) 96 Nasal Cannula 2.0 07/01/16 05:00 92 20 116/69 (85) 97 Nasal Cannula 2.0 07/01/16 04:00 94 16 108/49 (68) 97 Nasal Cannula 2.0 07/01/16 04:00 Nasal Cannula 2.0 07/01/16 03:55 22 98 Nasal Cannula 2.0 07/01/16 03:00 97.8 88 16 97 Nasal Cannula 2.0 97.8 07/01/16 02:00 89 17 103/47 (65) 93 Nasal Cannula 2.0 07/01/16 01:00 90 22 127/72 (90) 98 Nasal Cannula 3.0 07/01/16 00:06 24 97 Nasal Cannula 2.0 07/01/16 00:00 Nasal Cannula 3.0 07/01/16 00:00 88 21 124/63 (83) 95 Nasal Cannula 3.0 06/30/16 23:00 98.2 74 18 103/56 (72) 96 Nasal Cannula 2.0 98.2 06/30/16 22:04 95 Room Air 2.0 06/30/16 22:00 74 20 110/58 (75) 97 Nasal Cannula 2.0 06/30/16 21:34 25 95 Room Air 2.0 06/30/16 21:00 75 21 105/55 (72) 94 Room Air 2.0 5/20/17 20:00 Room Air 06/30/16 20:00 75 20 129/62 (84) 94 Nasal Cannula 2.0 06/30/16 19:00 98.4 79 20 114/58 (76) 92 Room Air 98.4 06/30/16 18:00 70 20 80/41 (54) 97 Room Air 06/30/16 17:48 20 06/30/16 17:18 16 Nasal Cannula 2.0 06/30/16 17:00 64 18 75/43 (54) 96 Room Air 06/30/16 16:00 97.8 62 17 73/42 (52) 96 Room Air 97.8 06/30/16 16:00 Nasal Cannula 1.0 06/30/16 15:00 60 16 74/41 (52) 98 Room Air 06/30/16 14:30 60 18 74/44 (54) 92 Nasal Cannula 1.0 06/30/16 14:00 Nasal Cannula 1.0 06/30/16 14:00 64 18 77/47 (57) 96 Nasal Cannula 1.0 06/30/16 13:30 97.7 72 18 79/44 (56) 98 Room Air 97.7 06/30/16 13:03 Room Air 06/30/16 12:56 64 96/46 (63) 06/30/16 12:41 59 81/44 (56) I & O Intake and Output 07/01/16 07:00 Intake Total 6176.09 ml Output Total 2980 ml Balance 3196.09 ml Intake Oral 50 ml IV Total 6126.09 ml Output Urine Total 2980 ml ASSESSMENT/PLAN Assessment/Plan [id number] H&P dictated Problems: COMMENT Lab Laboratory Tests Test 06/30/16 13:00 06/30/16 14:10 06/30/16 17:20 06/30/16 18:59 Urine Collection Type Unknown Urine Color Yellow Urine Clarity Clear Urine pH 5.5 Urine Specific [place] 1.020 Urine Protein 100 mg/dL (NEG-TRACE) Urine Glucose (UA) Negative mg/dL (NEG) Urine Ketones (Stick) Trace mg/dL (NEG) Urine Blood Trace (NEG) Urine Nitrite Negative (NEG) Urine Bilirubin Moderate (NEG) Urine Urobilinogen Dipstick 1.0 mg/dL (0.2 mg/dL) Urine Leukocyte Esterase Negative (NEG) Urine RBC 0 /HPF (0-2) Urine WBC 1-4 /HPF (0-4) Urine Squamous Epithelial Cells Few /LPF Urine Transitional Epithelial Cells Few /LPF Urine Amorphous Sediment Present /HPF Urine Bacteria 0 /HPF (0-FEW) Urine Hyaline Casts Moderate /HPF Urine Granular Casts Few /HPF Urine Opiates Screen Neg (NEG) Urine Methadone Screen Neg (NEG) Urine Barbiturates Neg (NEG) Urine Phencyclidine Screen Neg (NEG) Urine Amphetamine/Methamphetamine Neg (NEG) Urine Benzodiazepines Screen Neg (NEG) Urine Cocaine Screen Neg (NEG) Urine Cannabinoids Screen Neg (NEG) Urine Ethyl Alcohol Pos (NEG) Potassium Level 6.0 mmol/L (3.5-5.1) 6.1 mmol/L (3.5-5.1) Lactic Acid Level 1.1 mmol/L (0.4-2.0) Test 07/01/16 05:10 White Blood Count 4.5 x10^3/uL (4.0-11.0) Red Blood Count 3.22 x10^6/uL (4.30-5.70) Hemoglobin 10.9 g/dL (13.0-17.5) Hematocrit 32.0 % (39.0-53.0) Mean Corpuscular Volume 99 fL (79-100) Mean Corpuscular Hemoglobin 34 pg (25-35) Mean Corpuscular Hemoglobin Concent 34 g/dL (31-37) Red Cell Distribution Width 20.4 % (11.5-14.5) Platelet Count 74 x10^3/uL (140-400) Neutrophils (%) (Auto) 61 % (31-73) Lymphocytes (%) (Auto) 29 % (24-48) Monocytes (%) (Auto) 8 % (0-9) Eosinophils (%) (Auto) 3 % (0-3) Basophils (%) (Auto) 0 % (0-3) Neutrophils # (Auto) 2.7 x10^3uL (1.8-7.7) Lymphocytes # (Auto) 1.3 x10^3/uL (1.0-4.8) Monocytes # (Auto) 0.4 x10^3/uL (0.0-1.1) Eosinophils # (Auto) 0.1 x10^3/uL (0.0-0.7) Basophils # (Auto) 0.0 x10^3/uL (0.0-0.2) Sodium Level 137 mmol/L (136-145) Potassium Level 5.6 mmol/L (3.5-5.1) Chloride Level 106 mmol/L (98-107) Carbon Dioxide Level 21 mmol/L (21-32) Anion Gap 10 (6-14) Blood Urea Nitrogen 69 mg/dL (8-26) Creatinine 2.0 mg/dL (0.7-1.3) Estimated GFR (Cockcroft-Gault) 33.4 BUN/Creatinine Ratio 35 (6-20) Glucose Level 97 mg/dL (70-99) Calcium Level 8.0 mg/dL (8.5-10.1) Magnesium Level 1.0 mg/dL (1.8-2.4) Total Bilirubin 0.5 mg/dL (0.2-1.0) Aspartate Amino Transf (AST/SGOT) 25 U/L (15-37) Alanine Aminotransferase (ALT/SGPT) 21 U/L (16-63) Alkaline Phosphatase 54 U/L (46-116) Total Protein 6.6 g/dL (6.4-8.2) Albumin 2.6 g/dL (3.4-5.0) Albumin/Globulin Ratio 0.7 (1.0-1.7) SAM HUMPHREYS MD July 01, 2016 12:26
--- NOTE | 2016-07-01 14:00 | PREOP HP ---
DATE OF SERVICE: HISTORY OF PRESENT ILLNESS: The patient is a 70-year-old gentleman who is now in room #102 in the Intensive Care Unit, was brought to the Emergency Room by his son for evaluation of increased mental status, confusion, weakness and body aches. He has not been eating for the last couple of weeks. He only has been drinking alcohol. He has been drinking about a pint and a half every day. He started drinking since 9 o'clock in the morning. He is very weak. He denies fever or chills, diarrhea or dysuria, cough or chest pain. He does not feel good in general. He was noted to be hypotensive in the Emergency Room. PAST MEDICAL HISTORY: Significant for hypertension, hypertensive cardiovascular disease, hyperlipidemia, COPD, and emphysema. He has a history of lung cancer, status post lobectomy of the left lower lobe, colorectal cancer, status post colostomy and partial colectomy, history of hiatal hernia, obesity, prostate cancer, osteoarthritis, back pain, and previous history of tonsillectomy. SOCIAL HISTORY: He does drink alcohol regularly. He is a smoker. Denies use of other illicit drugs. FAMILY HISTORY: Positive for hypertension. REVIEW OF SYSTEMS: CONSTITUTIONAL: Denies fever or chills, but he is still weak in general and has lost weight. EYES: Denies visual changes. HEENT: Denies nasal congestion or sore throat. RESPIRATORY: Denies cough or shortness of breath. CARDIOVASCULAR: Denies chest pain. GASTROINTESTINAL: Denies abdominal pain. He has been nauseated and decreased appetite as mentioned above. No bloody stool. GENITOURINARY: Denies dysuria. He does have urinary frequency. MUSCULOSKELETAL: He does have myalgia and arthralgia. NEUROLOGY: He denies headache. He does have generalized weakness, but no focal weakness, no sensory changes. PHYSICAL EXAMINATION: GENERAL: He is a chronically ill-appearing male. He has poor dentition. HEENT: Normocephalic and atraumatic. Mucous membranes are dry. His eyes are with normal color conjunctivae. Pupils are reactive. NECK: Supple. HEART: Regular rate and rhythm. LUNGS: Fairly clear to auscultation. ABDOMEN: He does have ostomy in place, soft abdomen. He has a large midline hernia. Positive bowel sounds. SKIN: Warm and dry. BACK: Denies CVA tenderness. EXTREMITIES: No edema, clubbing or cyanosis. NEUROLOGIC: Alert and oriented, does not have any focal deficit. LABORATORY DATA: He was evaluated in the Emergency Room and was found to have acute renal failure with hyperkalemia and hypomagnesemia. IMPRESSION: 1. Acute renal failure with no previous history of chronic kidney disease. 2. Hyperkalemia. 3. Thrombocytopenia due to alcoholism. 4. Alcoholism. 5. Hypomagnesemia. 6. Lactic acidosis. 7. Hypotension due to dehydration. 8. Previous history of hypertension and hyperlipidemia. His blood pressure medications are on hold at present time. 9. Previous history of lung cancer, status post lobectomy, colon cancer, status post partial colectomy and colostomy, and history of prostate cancer. PLAN: The patient was admitted, his blood pressure medications were held and he is hydrated, started on Levophed and blood pressure support. Renal was consulted. He has been hydrated, magnesium is replaced and is being treated for the hyperkalemia. SAM HUMPHREYS MD DR: LAURA/dania JOB#: [id number] / [id number]
[2016-07-02] VITALS (21 sets, daily range): BP systolic 80–133; BP diastolic 42–76
[2016-07-02] MEDS: LORazepam 1 MG TABLET PO SCH (00:13)
[2016-07-02] MEDS: fentaNYL PF VIAL 100 MCG/2 ML VIAL IV PRN (03:45)
[2016-07-02] MEDS: SODIUM BICARBONATE VIAL 50 MEQ in IV 1/2 NORMAL SALINE 1,000 ML IV SCH (03:45)
[2016-07-02 05:44] LABS: HEMATOCRIT 30.3 % (39.0-53.0); HEMOGLOBIN 9.9 g/dL (13.0-17.5); RED BLOOD COUNT 2.98 x10^6/uL (4.30-5.70); RED CELL DISTRIBUTION WIDTH 20.3 % (11.5-14.5); WHITE BLOOD COUNT 3.3 x10^3/uL (4.0-11.0)
[2016-07-02 05:56] LABS: INR 1.1 (0.8-1.1); PROTHROMBIN TIME PATIENT 13.9 SEC (11.7-14.0)
[2016-07-02 06:07] LABS: ALBUMIN 2.4 g/dL (3.4-5.0); ALBUMIN/GLOBULIN RATIO 0.6 (1.0-1.7); CALCIUM 7.5 mg/dL (8.5-10.1); CREATININE 1.1 mg/dL (0.7-1.3); GFR 66.6; POTASSIUM 5.1 mmol/L (3.5-5.1); TOTAL BILIRUBIN 0.4 mg/dL (0.2-1.0); TOTAL PROTEIN 6.4 g/dL (6.4-8.2)
[2016-07-02] MEDS ORDERED: LORazepam 1 MG TABLET PO PRN (07:15)
[2016-07-02] MEDS: PANTOPRAZOLE 40 MG TABLET.DR. PO SCH (07:44)
[2016-07-02] MEDS ORDERED: MAGNESIUM SULFATE 2GM 50 ML IV ONE (08:00)
--- NOTE | 2016-07-02 08:13 | PDOC ---
GENERAL General: vss and afebrile. awake and mostly alert. little sleepy. Mg 1.0 and replacement ongoing. creatinine down to 1.1 and K+ 5.1. Hb down to 9.9. off pressors since yesterday. complains of shoulder and leg pain. no obvious ETOH wd symptoms with ativan ongoing. will order po pain meds. Problems: VITAL SIGNS Vital Signs: Vital Signs Date Time Temp Pulse Resp B/P (MAP) Pulse Ox O2 Delivery O2 Flow Rate FiO2 07/02/16 06:00 91 26 111/67 (82) 93 Nasal Cannula 3.0 07/02/16 03:00 97.6 97.6 I & O I & O Intake and Output 07/02/16 07:00 Intake Total 5961 ml Output Total 4635 ml Balance 1326 ml Intake Oral 935 ml IV Total 5026 ml Output Urine Total 4635 ml ALLERGIES Allergies: Allergies Coded Allergies Type Severity Reaction Last Updated Verified No Known Drug Allergies 06/29/15 No MEDS Medications: Current Medications Medications (Trade) Dose Ordered Sig/Christin Start Time Stop Time Status Last Admin Dose Admin Albuterol Sulfate (Ventolin Neb Soln) 2.5 mg 1X ONCE 06/30/16 12:30 06/30/16 12:31 DC 06/30/16 13:02 2.5 MG Calcium Gluconate (Calcium Gluconate) 1,000 mg 1X ONCE 06/30/16 12:30 06/30/16 12:31 UNV Calcium Gluconate 1000 mg/Sodium Chloride 110 ml @ 440 mls/hr 1X ONCE 06/30/16 12:30 06/30/16 12:44 DC 06/30/16 12:51 440 MLS/HR Chlordiazepoxide (Librium) 25 mg Q6H 06/30/16 16:00 06/30/16 18:13 DC Dextrose (Dextrose 50%-Water Syringe) 25 gm 1X ONCE 06/30/16 12:30 06/30/16 12:31 DC 06/30/16 12:47 25 GM Fentanyl Citrate (Fentanyl 2ml Vial) 50 mcg PRN Q2HR PRN 07/01/16 21:15 07/02/16 03:45 50 MCG Folic Acid (Folic Acid) 1 mg DAILY 07/06/16 09:00 Insulin Human Regular (NovoLIN R VIAL) 10 unit 1X ONCE 06/30/16 12:30 06/30/16 12:31 DC 06/30/16 12:50 10 UNIT Lorazepam (Ativan) 2 mg PRN Q6HRS PRN 07/02/16 07:15 Magnesium Sulfate/ Dextrose 50 ml @ 25 mls/hr 1X ONCE 07/02/16 08:00 07/02/16 09:59 07/02/16 07:44 25 MLS/HR Multivitamins (Thera M Plus) 1 tab DAILY 07/06/16 09:00 Multivitamins 10 ml/Folic Acid 1 mg/Thiamine HCl 100 mg/Sodium Chloride 1,011.2 ml @ 1,000 mls/ hr 1X ONCE 06/30/16 11:45 06/30/16 12:45 DC 06/30/16 11:54 1,000 MLS/HR Multivitamins 10 ml/Thiamine HCl 100 mg/Folic Acid 1 mg/Sodium Chloride 1,011.2 ml @ 100 mls/ hr DAILY 07/01/16 09:00 07/06/16 08:59 07/01/16 09:15 100 MLS/HR Norepinephrine Bitartrate 250 ml @ 0 mls/hr CONT PRN 06/30/16 17:00 06/30/16 17:37 2.3 MLS/HR Ondansetron HCl (Zofran) 4 mg PRN Q8HRS PRN 06/30/16 12:45 07/01/16 12:44 DC 06/30/16 15:09 4 MG Pantoprazole Sodium (Protonix) 40 mg DAILYAC 07/02/16 07:30 07/02/16 07:44 40 MG Pneumococcal Polyvalent Vaccine (Do NOT chart on this placeholder) 1 each 1X ONCE 06/30/16 14:45 06/30/16 15:17 DC Pneumococcal Polyvalent Vaccine (Pneumovax 23) 0.5 ml ONCE ONCE 06/30/16 15:30 06/30/16 15:31 DC Sodium Bicarbonate 50 meq/Sodium Chloride 1,050 ml @ 150 mls/hr Q7H 06/30/16 14:30 07/02/16 03:45 150 MLS/HR Sodium Chloride 1,000 ml @ 1,000 mls/hr 1X ONCE 06/30/16 17:00 06/30/16 17:59 DC 06/30/16 17:29 1,000 MLS/HR Thiamine Mononitrate (Vitamin B-1) 100 mg DAILY 07/06/16 09:00 Thiamine HCl 100 mg/Sodium Chloride 51 ml @ 100 mls/hr DAILY 07/01/16 09:00 07/06/16 08:59 UNV LAB Lab: Laboratory Tests Test 07/02/16 05:05 White Blood Count 3.3 x10^3/uL (4.0-11.0) Red Blood Count 2.98 x10^6/uL (4.30-5.70) Hemoglobin 9.9 g/dL (13.0-17.5) Hematocrit 30.3 % (39.0-53.0) Mean Corpuscular Volume 101 fL (79-100) Mean Corpuscular Hemoglobin 33 pg (25-35) Mean Corpuscular Hemoglobin Concent 33 g/dL (31-37) Red Cell Distribution Width 20.3 % (11.5-14.5) Platelet Count 67 x10^3/uL (140-400) Prothrombin Time 13.9 SEC (11.7-14.0) Prothromb Time International Ratio 1.1 (0.8-1.1) Sodium Level 142 mmol/L (136-145) Potassium Level 5.1 mmol/L (3.5-5.1) Chloride Level 107 mmol/L (98-107) Carbon Dioxide Level 31 mmol/L (21-32) Anion Gap 4 (6-14) Blood Urea Nitrogen 29 mg/dL (8-26) Creatinine 1.1 mg/dL (0.7-1.3) Estimated GFR (Cockcroft-Gault) 66.6 BUN/Creatinine Ratio 26 (6-20) Glucose Level 90 mg/dL (70-99) Calcium Level 7.5 mg/dL (8.5-10.1) Magnesium Level 1.0 mg/dL (1.8-2.4) Total Bilirubin 0.4 mg/dL (0.2-1.0) Aspartate Amino Transf (AST/SGOT) 27 U/L (15-37) Alanine Aminotransferase (ALT/SGPT) 19 U/L (16-63) Alkaline Phosphatase 49 U/L (46-116) Total Protein 6.4 g/dL (6.4-8.2) Albumin 2.4 g/dL (3.4-5.0) Albumin/Globulin Ratio 0.6 (1.0-1.7) CLARE MAN MD July 02, 2016 08:13
[2016-07-02] MEDS: HYDROcodone/APAP 5/325MG 1 TAB TABLET PO PRN ×3 (08:39→22:49)
[2016-07-02] MEDS: MULTIVIT INFUSN,ADULT 4,VIT K 10 ML, THIAMINE 100 MG, FOLIC ACID 1 MG in IV NORMAL SALI... IV SCH (08:43)
--- NOTE | 2016-07-02 10:42 | PDOC ---
Renal-Progress Notes Subjective Notes Notes SITTING UP, NO COMPLAINTS History of Present Illness Hx of present illness BETTER Vitals Vitals Vital Signs Date Time Temp Pulse Resp B/P (MAP) Pulse Ox O2 Delivery O2 Flow Rate FiO2 07/02/16 08:39 18 94 Nasal Cannula 2.0 07/02/16 06:00 91 111/67 (82) 07/02/16 03:00 97.6 97.6 Weight Weight [ ] I.O. Intake and Output Intake and Output 07/02/16 07:00 Intake Total 5961 ml Output Total 4635 ml Balance 1326 ml Intake Oral 935 ml IV Total 5026 ml Output Urine Total 4635 ml Labs Labs Laboratory Tests Test 07/02/16 05:05 White Blood Count 3.3 x10^3/uL (4.0-11.0) Red Blood Count 2.98 x10^6/uL (4.30-5.70) Hemoglobin 9.9 g/dL (13.0-17.5) Hematocrit 30.3 % (39.0-53.0) Mean Corpuscular Volume 101 fL (79-100) Mean Corpuscular Hemoglobin 33 pg (25-35) Mean Corpuscular Hemoglobin Concent 33 g/dL (31-37) Red Cell Distribution Width 20.3 % (11.5-14.5) Platelet Count 67 x10^3/uL (140-400) Prothrombin Time 13.9 SEC (11.7-14.0) Prothromb Time International Ratio 1.1 (0.8-1.1) Sodium Level 142 mmol/L (136-145) Potassium Level 5.1 mmol/L (3.5-5.1) Chloride Level 107 mmol/L (98-107) Carbon Dioxide Level 31 mmol/L (21-32) Anion Gap 4 (6-14) Blood Urea Nitrogen 29 mg/dL (8-26) Creatinine 1.1 mg/dL (0.7-1.3) Estimated GFR (Cockcroft-Gault) 66.6 BUN/Creatinine Ratio 26 (6-20) Glucose Level 90 mg/dL (70-99) Calcium Level 7.5 mg/dL (8.5-10.1) Magnesium Level 1.0 mg/dL (1.8-2.4) Total Bilirubin 0.4 mg/dL (0.2-1.0) Aspartate Amino Transf (AST/SGOT) 27 U/L (15-37) Alanine Aminotransferase (ALT/SGPT) 19 U/L (16-63) Alkaline Phosphatase 49 U/L (46-116) Total Protein 6.4 g/dL (6.4-8.2) Albumin 2.4 g/dL (3.4-5.0) Albumin/Globulin Ratio 0.6 (1.0-1.7) Review of Systems Constitutional: yes: weakness, alert, oriented Ears/Nose/Throat: Yes: no symptom reported Pulmonary: Yes no symptom reported Cardiovascular: Yes no symptom reported Gastrointestional: Yes: no symptom reported Musculoskeletal: Yes: no symptom reported Psychiatric/Neurological: Yes: no symptom reported Hematologic/Lymphatic: No: no symptom reported Physical Exam General Appearance: no apparent distress Skin: warm Respiratory: bilateral CTA Heart: S1S2, RRR Abdomen: soft, bowel sounds present Genitourinary: bladder flat Extremities: pulses present Neurology: alert, oriented Musculoskeletal: Swelling, Other Assessment Assessment IMP DEHYDRATION MET ACIDOSIS-RESOLVED HYPERKALEMIA-RESOLVED FABIOLA-NEARLY RESOLVED PLAN ENC ABSTINENCE FROM ETOH CHANGE IVF TO 1/2 NS BANANA BAG DAILY KASHMIR MANZO MD July 02, 2016 10:42
[2016-07-02] MEDS: IV 1/2 NORMAL SALINE 1,000 ML IV SCH (11:29)
[2016-07-03] VITALS (15 sets, daily range): BP systolic 111–162; BP diastolic 58–87
[2016-07-03] MEDS: IV 1/2 NORMAL SALINE 1,000 ML IV SCH (02:55)
[2016-07-03 04:13] LABS: BASO % 0 % (0-3); EOS % 4 % (0-3); HEMATOCRIT 31.2 % (39.0-53.0); HEMOGLOBIN 10.2 g/dL (13.0-17.5); LYMPH % 30 % (24-48); MEAN CORPUSCULAR HEMOGLOBIN 33 pg (25-35); MEAN CORPUSCULAR HGB CONC 33 g/dL (31-37); MEAN CORPUSCULAR VOLUME 102 fL (79-100); MONO % 8 % (0-9); NEUT % 58 % (31-73); PLATELET COUNT 72 x10^3/uL (140-400); RED BLOOD COUNT 3.07 x10^6/uL (4.30-5.70); RED CELL DISTRIBUTION WIDTH 19.4 % (11.5-14.5); WHITE BLOOD COUNT 3.5 x10^3/uL (4.0-11.0)
[2016-07-03 04:34] LABS: ALBUMIN 2.4 g/dL (3.4-5.0); ALBUMIN/GLOBULIN RATIO 0.6 (1.0-1.7); CALCIUM 7.6 mg/dL (8.5-10.1); CREATININE 0.9 mg/dL (0.7-1.3); GFR 83.9; POTASSIUM 4.8 mmol/L (3.5-5.1); TOTAL BILIRUBIN 0.4 mg/dL (0.2-1.0); TOTAL PROTEIN 6.3 g/dL (6.4-8.2)
[2016-07-03] MEDS: PANTOPRAZOLE 40 MG TABLET.DR. PO SCH (07:50)
[2016-07-03] MEDS: HYDROcodone/APAP 5/325MG 1 TAB TABLET PO PRN ×3 (07:50→21:35)
--- NOTE | 2016-07-03 08:20 | PDOC ---
GENERAL General: vss and afebrile. awake and alert and son in attendance. feeling some better and complains bitterly about right shoulder and shoulder blade pain going on for some time. chest with decreased breath sounds, heart regular, abdomen benign with stable hernias. some pain with rom right shoulder but not bad. will ask for ortho opinion. Mg still low at 1.0 and will defer to renal. renal failure has completely resolved. Problems: VITAL SIGNS Vital Signs: Vital Signs Date Time Temp Pulse Resp B/P (MAP) Pulse Ox O2 Delivery O2 Flow Rate FiO2 07/03/16 08:00 Nasal Cannula 3.0 07/03/16 08:00 98.3 88 21 137/72 (93) 98 98.3 I & O I & O Intake and Output 07/03/16 07:00 Intake Total 3970 ml Output Total 4200 ml Balance -230 ml Intake Oral 760 ml IV Total 3210 ml Output Urine Total 4200 ml ALLERGIES Allergies: Allergies Coded Allergies Type Severity Reaction Last Updated Verified No Known Drug Allergies 06/29/15 No MEDS Medications: Current Medications Medications (Trade) Dose Ordered Sig/Christin Start Time Stop Time Status Last Admin Dose Admin Acetaminophen/ Hydrocodone Bitart (Lortab 5/325) 2 tab PRN Q4HRS PRN 07/02/16 08:15 07/03/16 07:50 2 TAB Albuterol Sulfate (Ventolin Neb Soln) 2.5 mg 1X ONCE 06/30/16 12:30 06/30/16 12:31 DC 06/30/16 13:02 2.5 MG Calcium Gluconate (Calcium Gluconate) 1,000 mg 1X ONCE 06/30/16 12:30 06/30/16 12:31 UNV Calcium Gluconate 1000 mg/Sodium Chloride 110 ml @ 440 mls/hr 1X ONCE 06/30/16 12:30 06/30/16 12:44 DC 06/30/16 12:51 440 MLS/HR Chlordiazepoxide (Librium) 25 mg Q6H 06/30/16 16:00 06/30/16 18:13 DC Dextrose (Dextrose 50%-Water Syringe) 25 gm 1X ONCE 06/30/16 12:30 06/30/16 12:31 DC 06/30/16 12:47 25 GM Fentanyl Citrate (Fentanyl 2ml Vial) 50 mcg PRN Q2HR PRN 07/01/16 21:15 07/02/16 03:45 50 MCG Folic Acid (Folic Acid) 1 mg DAILY 07/06/16 09:00 Insulin Human Regular (NovoLIN R VIAL) 10 unit 1X ONCE 06/30/16 12:30 06/30/16 12:31 DC 06/30/16 12:50 10 UNIT Lorazepam (Ativan) 2 mg PRN Q6HRS PRN 07/02/16 07:15 Magnesium Sulfate/ Dextrose 50 ml @ 25 mls/hr 1X ONCE 07/02/16 08:00 07/02/16 09:59 DC 07/02/16 07:44 25 MLS/HR Multivitamins (Thera M Plus) 1 tab DAILY 07/06/16 09:00 Multivitamins 10 ml/Folic Acid 1 mg/Thiamine HCl 100 mg/Sodium Chloride 1,011.2 ml @ 1,000 mls/ hr 1X ONCE 06/30/16 11:45 06/30/16 12:45 DC 06/30/16 11:54 1,000 MLS/HR Multivitamins 10 ml/Thiamine HCl 100 mg/Folic Acid 1 mg/Sodium Chloride 1,011.2 ml @ 100 mls/ hr DAILY 07/01/16 09:00 07/06/16 08:59 07/02/16 08:43 100 MLS/HR Norepinephrine Bitartrate 250 ml @ 0 mls/hr CONT PRN 06/30/16 17:00 06/30/16 17:37 2.3 MLS/HR Ondansetron HCl (Zofran) 4 mg PRN Q8HRS PRN 06/30/16 12:45 07/01/16 12:44 DC 06/30/16 15:09 4 MG Pantoprazole Sodium (Protonix) 40 mg DAILYAC 07/02/16 07:30 07/03/16 07:50 40 MG Pneumococcal Polyvalent Vaccine (Do NOT chart on this placeholder) 1 each 1X ONCE 06/30/16 14:45 06/30/16 15:17 DC Pneumococcal Polyvalent Vaccine (Pneumovax 23) 0.5 ml ONCE ONCE 06/30/16 15:30 06/30/16 15:31 DC 07/03/16 07:52 0.5 ML Sodium Bicarbonate 50 meq/Sodium Chloride 1,050 ml @ 150 mls/hr Q7H 06/30/16 14:30 07/02/16 10:43 DC 07/02/16 03:45 150 MLS/HR Sodium Chloride 1,000 ml @ 75 mls/hr [id number] 07/02/16 10:45 07/03/16 02:55 75 MLS/HR Thiamine Mononitrate (Vitamin B-1) 100 mg DAILY 07/06/16 09:00 Thiamine HCl 100 mg/Sodium Chloride 51 ml @ 100 mls/hr DAILY 07/01/16 09:00 07/06/16 08:59 UNV LAB Lab: Laboratory Tests Test 07/03/16 03:50 White Blood Count 3.5 x10^3/uL (4.0-11.0) Red Blood Count 3.07 x10^6/uL (4.30-5.70) Hemoglobin 10.2 g/dL (13.0-17.5) Hematocrit 31.2 % (39.0-53.0) Mean Corpuscular Volume 102 fL (79-100) Mean Corpuscular Hemoglobin 33 pg (25-35) Mean Corpuscular Hemoglobin Concent 33 g/dL (31-37) Red Cell Distribution Width 19.4 % (11.5-14.5) Platelet Count 72 x10^3/uL (140-400) Neutrophils (%) (Auto) 58 % (31-73) Lymphocytes (%) (Auto) 30 % (24-48) Monocytes (%) (Auto) 8 % (0-9) Eosinophils (%) (Auto) 4 % (0-3) Basophils (%) (Auto) 0 % (0-3) Neutrophils # (Auto) 2.0 x10^3uL (1.8-7.7) Lymphocytes # (Auto) 1.0 x10^3/uL (1.0-4.8) Monocytes # (Auto) 0.3 x10^3/uL (0.0-1.1) Eosinophils # (Auto) 0.1 x10^3/uL (0.0-0.7) Basophils # (Auto) 0.0 x10^3/uL (0.0-0.2) Sodium Level 141 mmol/L (136-145) Potassium Level 4.8 mmol/L (3.5-5.1) Chloride Level 104 mmol/L (98-107) Carbon Dioxide Level 36 mmol/L (21-32) Anion Gap 1 (6-14) Blood Urea Nitrogen 11 mg/dL (8-26) Creatinine 0.9 mg/dL (0.7-1.3) Estimated GFR (Cockcroft-Gault) 83.9 BUN/Creatinine Ratio 12 (6-20) Glucose Level 105 mg/dL (70-99) Calcium Level 7.6 mg/dL (8.5-10.1) Magnesium Level 1.0 mg/dL (1.8-2.4) Total Bilirubin 0.4 mg/dL (0.2-1.0) Aspartate Amino Transf (AST/SGOT) 37 U/L (15-37) Alanine Aminotransferase (ALT/SGPT) 25 U/L (16-63) Alkaline Phosphatase 50 U/L (46-116) Total Protein 6.3 g/dL (6.4-8.2) Albumin 2.4 g/dL (3.4-5.0) Albumin/Globulin Ratio 0.6 (1.0-1.7) CLAER MAN MD July 03, 2016 08:20
[2016-07-03] MEDS ORDERED: MAGNESIUM SULFATE 2GM 50 ML IV ONE ×2 (08:30→11:00)
[2016-07-03] MEDS: MULTIVIT INFUSN,ADULT 4,VIT K 10 ML, THIAMINE 100 MG, FOLIC ACID 1 MG in IV NORMAL SALI... IV SCH (09:02)
--- NOTE | 2016-07-03 09:10 | RAD ---
Indication bilateral shoulder pain. Internally and externally rotated views of both shoulders as well as individual Y views were obtained. Views of the right shoulder show no acute finding. There are no significant degenerative changes apparent on plain films. Views of the left shoulder demonstrate a chronic deformity, likely posttraumatic, associated with the distal clavicle. Orthopedic screw is noted in the distal clavicle. There is a fracture involving a posterior lateral left mid rib. An acute finding about the shoulder is not seen. Postoperative changes in the left lung are noted. IMPRESSION: No acute finding seen involving either shoulder
--- NOTE | 2016-07-03 10:59 | PDOC ---
Renal-Progress Notes Subjective Notes Notes NONE History of Present Illness Hx of present illness NO CHANGE Vitals Vitals Vital Signs Date Time Temp Pulse Resp B/P (MAP) Pulse Ox O2 Delivery O2 Flow Rate FiO2 07/03/16 09:00 93 24 128/65 (86) 98 Nasal Cannula 3.0 07/03/16 08:00 98.3 98.3 Weight Weight [ ] I.O. Intake and Output Intake and Output 07/03/16 07:00 Intake Total 3970 ml Output Total 4200 ml Balance -230 ml Intake Oral 760 ml IV Total 3210 ml Output Urine Total 4200 ml Labs Labs Laboratory Tests Test 07/03/16 03:50 White Blood Count 3.5 x10^3/uL (4.0-11.0) Red Blood Count 3.07 x10^6/uL (4.30-5.70) Hemoglobin 10.2 g/dL (13.0-17.5) Hematocrit 31.2 % (39.0-53.0) Mean Corpuscular Volume 102 fL (79-100) Mean Corpuscular Hemoglobin 33 pg (25-35) Mean Corpuscular Hemoglobin Concent 33 g/dL (31-37) Red Cell Distribution Width 19.4 % (11.5-14.5) Platelet Count 72 x10^3/uL (140-400) Neutrophils (%) (Auto) 58 % (31-73) Lymphocytes (%) (Auto) 30 % (24-48) Monocytes (%) (Auto) 8 % (0-9) Eosinophils (%) (Auto) 4 % (0-3) Basophils (%) (Auto) 0 % (0-3) Neutrophils # (Auto) 2.0 x10^3uL (1.8-7.7) Lymphocytes # (Auto) 1.0 x10^3/uL (1.0-4.8) Monocytes # (Auto) 0.3 x10^3/uL (0.0-1.1) Eosinophils # (Auto) 0.1 x10^3/uL (0.0-0.7) Basophils # (Auto) 0.0 x10^3/uL (0.0-0.2) Sodium Level 141 mmol/L (136-145) Potassium Level 4.8 mmol/L (3.5-5.1) Chloride Level 104 mmol/L (98-107) Carbon Dioxide Level 36 mmol/L (21-32) Anion Gap 1 (6-14) Blood Urea Nitrogen 11 mg/dL (8-26) Creatinine 0.9 mg/dL (0.7-1.3) Estimated GFR (Cockcroft-Gault) 83.9 BUN/Creatinine Ratio 12 (6-20) Glucose Level 105 mg/dL (70-99) Calcium Level 7.6 mg/dL (8.5-10.1) Magnesium Level 1.0 mg/dL (1.8-2.4) Total Bilirubin 0.4 mg/dL (0.2-1.0) Aspartate Amino Transf (AST/SGOT) 37 U/L (15-37) Alanine Aminotransferase (ALT/SGPT) 25 U/L (16-63) Alkaline Phosphatase 50 U/L (46-116) Total Protein 6.3 g/dL (6.4-8.2) Albumin 2.4 g/dL (3.4-5.0) Albumin/Globulin Ratio 0.6 (1.0-1.7) Review of Systems Constitutional: yes: weakness, alert, oriented Ears/Nose/Throat: Yes: no symptom reported Pulmonary: Yes no symptom reported Cardiovascular: Yes no symptom reported Gastrointestional: Yes: no symptom reported Musculoskeletal: Yes: no symptom reported Psychiatric/Neurological: Yes: no symptom reported Hematologic/Lymphatic: No: no symptom reported Physical Exam General Appearance: no apparent distress Skin: warm Respiratory: bilateral CTA Heart: S1S2, RRR Abdomen: soft, bowel sounds present Genitourinary: bladder flat Extremities: pulses present Neurology: alert, oriented Musculoskeletal: Swelling, Other Assessment Assessment IMP DEHYDRATION MET ACIDOSIS-RESOLVED HYPERKALEMIA-RESOLVED FABIOLA-RESOLVED LOW MAG PLAN ENC ABSTINENCE FROM ETOH STOP IVF'S REPLACE MAG BANANA BAG DAILY WILL SIGN OFF KASHMIR MANZO MD July 03, 2016 10:59
--- NOTE | 2016-07-03 23:17 | CONS ---
DATE OF CONSULTATION: 07/03/2016 REFERRING PROVIDER: Christian Meek M.D. CONSULTING PROVIDER: Kalin Spivey MD REASON FOR CONSULTATION: Right shoulder pain. CHIEF COMPLAINT: Right periscapular pain. HISTORY OF PRESENT ILLNESS: The patient is a pleasant 70-year-old gentleman brought in by family for diffuse body aches and weakness. The patient is a known alcoholic. He drinks approximately a pint to a pint and a half a day. Upon arrival, he also added that he really did not have any appetite and had not eaten anything in several days. I was asked to see him for his shoulder pain. He tells me he feels the pain low down on his right scapula, just worse with movement. The pain is not present initially upon awakening, but with increased activity it does hurt more. No injuries that he can recall. This pain has been going on for about 3-4 months. He also mentioned something similar with more lateral pain that radiates down his arm on the left side. His right side does hurt more. He denies any abnormal sensation in either upper extremity. He has not yet tried any interventions for his shoulder pain. ALLERGIES: None. MEDICATIONS: Reviewed, please see MRAD. PAST MEDICAL HISTORY: 1. Lung cancer, prostate cancer, colon cancer. 2. COPD. 3. Hypercholesterolemia, hypertension, alcoholism. PAST SURGICAL HISTORY: Partial colectomy, tonsillectomy, left lung lobectomy. SOCIAL HISTORY: Uses alcohol daily and heavily. FAMILY HISTORY: Noncontributory. REVIEW OF SYSTEMS: Twelve-point review of systems negative except as per HPI. PHYSICAL EXAMINATION: GENERAL: The patient is alert and oriented, in no acute distress. Mood and affect are appropriate. He is examined in the hospital bed. HEENT: Head normocephalic, atraumatic. Extraocular muscles are intact. Nasal cannula in place. LUNGS: Respirations are unlabored with symmetric chest rise. ABDOMEN: Obese, but soft. CARDIOVASCULAR: Regular rate and rhythm. No edema at his lower extremities. Radial pulses 2+. Examination of his bilateral upper extremities reveals no tenderness at either thumb. He has decreased active range of motion at his first MCP joint on his left side in terms of thumb flexion. Motor and sensation are intact in median, radial and ulnar nerves. He has mild tenderness in the generalized area anteriorly at his left shoulder and he has tenderness above trapezius on his right shoulder. His active forward elevation is to 160, he can actually rotate to 30 bilaterally. Rotator cuff strength is 4+ to 5/5 and mildly painful to supraspinatus testing bilaterally. Negative Rabun's, negative cross body adduction, negative circumduction. No crepitus with glenohumeral range of motion. IMAGING: X-rays are reviewed. Hand, shoulder, wrist, forearm and elbow x-rays on his left side were interpreted by myself. He has a comminuted fracture that does appear old at the first metacarpal neck. Shoulder x-rays revealed no obvious degenerative changes, but his humeral head does appear to be slightly superiorly migrated. IMPRESSION: Bilateral shoulder pain, suspect rotator cuff pathology. PLAN: We will get physical therapy to come by and assist with him and give him some rehabilitation exercises. He will get x-rays of the left side and discuss injections after that pending on the results. KALIN SPIVEY MD DR: DEBORAH/dania JOB#: [id number] / [id number] JUAN
[2016-07-04 03:20] VITALS: BP 144/84
[2016-07-04] MEDS: HYDROcodone/APAP 5/325MG 1 TAB TABLET PO PRN ×3 (04:31→16:57)
[2016-07-04 06:47] LABS: BASO % 1 % (0-3); EOS % 5 % (0-3); HEMATOCRIT 32.3 % (39.0-53.0); HEMOGLOBIN 10.6 g/dL (13.0-17.5); LYMPH # 1.2 x10^3/uL (1.0-4.8); LYMPH % 36 % (24-48); MEAN CORPUSCULAR HEMOGLOBIN 33 pg (25-35); MEAN CORPUSCULAR HGB CONC 33 g/dL (31-37); MEAN CORPUSCULAR VOLUME 100 fL (79-100); MONO % 9 % (0-9); NEUT % 50 % (31-73); PLATELET COUNT 83 x10^3/uL (140-400); RED BLOOD COUNT 3.22 x10^6/uL (4.30-5.70); RED CELL DISTRIBUTION WIDTH 19.4 % (11.5-14.5); WHITE BLOOD COUNT 3.5 x10^3/uL (4.0-11.0)
[2016-07-04 07:02] LABS: ALBUMIN 2.5 g/dL (3.4-5.0); ALBUMIN/GLOBULIN RATIO 0.7 (1.0-1.7); CALCIUM 7.9 mg/dL (8.5-10.1); CREATININE 0.8 mg/dL (0.7-1.3); GFR 96.1; POTASSIUM 4.5 mmol/L (3.5-5.1); TOTAL BILIRUBIN 0.4 mg/dL (0.2-1.0); TOTAL PROTEIN 6.2 g/dL (6.4-8.2)
[2016-07-04 07:12] VITALS: BP 140/83
[2016-07-04] MEDS: PANTOPRAZOLE 40 MG TABLET.DR. PO SCH (07:30)
[2016-07-04] MEDS: MULTIVIT INFUSN,ADULT 4,VIT K 10 ML, THIAMINE 100 MG, FOLIC ACID 1 MG in IV NORMAL SALI... IV SCH (08:15)
--- NOTE | 2016-07-04 10:26 | PDOC ---
Renal-Progress Notes Subjective Notes Notes NONE History of Present Illness Hx of present illness STABLE Vitals Vitals Vital Signs Date Time Temp Pulse Resp B/P (MAP) Pulse Ox O2 Delivery O2 Flow Rate FiO2 07/04/16 08:00 Nasal Cannula 3.0 07/04/16 07:12 97.8 87 20 140/83 (102) 94 97.8 Weight Weight [ ] I.O. Intake and Output Intake and Output 07/04/16 07:00 Intake Total 250 ml Output Total 1600 ml Balance -1350 ml Intake Oral 200 ml IV Total 50 ml Output Urine Total 1600 ml # Voids 2 Labs Labs Laboratory Tests Test 07/04/16 06:30 White Blood Count 3.5 x10^3/uL (4.0-11.0) Red Blood Count 3.22 x10^6/uL (4.30-5.70) Hemoglobin 10.6 g/dL (13.0-17.5) Hematocrit 32.3 % (39.0-53.0) Mean Corpuscular Volume 100 fL (79-100) Mean Corpuscular Hemoglobin 33 pg (25-35) Mean Corpuscular Hemoglobin Concent 33 g/dL (31-37) Red Cell Distribution Width 19.4 % (11.5-14.5) Platelet Count 83 x10^3/uL (140-400) Neutrophils (%) (Auto) 50 % (31-73) Lymphocytes (%) (Auto) 36 % (24-48) Monocytes (%) (Auto) 9 % (0-9) Eosinophils (%) (Auto) 5 % (0-3) Basophils (%) (Auto) 1 % (0-3) Neutrophils # (Auto) 1.7 x10^3uL (1.8-7.7) Lymphocytes # (Auto) 1.2 x10^3/uL (1.0-4.8) Monocytes # (Auto) 0.3 x10^3/uL (0.0-1.1) Eosinophils # (Auto) 0.2 x10^3/uL (0.0-0.7) Basophils # (Auto) 0.0 x10^3/uL (0.0-0.2) Sodium Level 140 mmol/L (136-145) Potassium Level 4.5 mmol/L (3.5-5.1) Chloride Level 101 mmol/L (98-107) Carbon Dioxide Level 36 mmol/L (21-32) Anion Gap 3 (6-14) Blood Urea Nitrogen 7 mg/dL (8-26) Creatinine 0.8 mg/dL (0.7-1.3) Estimated GFR (Cockcroft-Gault) 96.1 BUN/Creatinine Ratio 9 (6-20) Glucose Level 100 mg/dL (70-99) Calcium Level 7.9 mg/dL (8.5-10.1) Magnesium Level 1.2 mg/dL (1.8-2.4) Total Bilirubin 0.4 mg/dL (0.2-1.0) Aspartate Amino Transf (AST/SGOT) 38 U/L (15-37) Alanine Aminotransferase (ALT/SGPT) 29 U/L (16-63) Alkaline Phosphatase 52 U/L (46-116) Total Protein 6.2 g/dL (6.4-8.2) Albumin 2.5 g/dL (3.4-5.0) Albumin/Globulin Ratio 0.7 (1.0-1.7) Review of Systems Constitutional: yes: weakness, alert, oriented Ears/Nose/Throat: Yes: no symptom reported Pulmonary: Yes no symptom reported Cardiovascular: Yes no symptom reported Gastrointestional: Yes: no symptom reported Musculoskeletal: Yes: no symptom reported Psychiatric/Neurological: Yes: no symptom reported Hematologic/Lymphatic: No: no symptom reported Physical Exam General Appearance: no apparent distress Skin: warm Respiratory: bilateral CTA Heart: S1S2, RRR Abdomen: soft, bowel sounds present Genitourinary: bladder flat Extremities: pulses present Neurology: alert, oriented Musculoskeletal: Swelling, Other Assessment Assessment IMP DEHYDRATION MET ACIDOSIS-RESOLVED HYPERKALEMIA-RESOLVED FABIOLA-RESOLVED LOW MAG PLAN ENC ABSTINENCE FROM ETOH REPLACE MAG AGAIN WILL SIGN OFF PLEASE CALL IF NEEDED KASHMIR MANZO MD July 04, 2016 10:26
[2016-07-04] MEDS ORDERED: MAGNESIUM SULFATE 2GM 50 ML IV ONE (10:30)
[2016-07-04 10:57] VITALS: BP 152/88
--- NOTE | 2016-07-04 12:59 | PDOC ---
ORTHO PROGRESS NOTES Subjective shoulder pain unchanged. Vitals Vital Signs Date Time Temp Pulse Resp B/P (MAP) Pulse Ox O2 Delivery O2 Flow Rate FiO2 07/04/16 11:45 Nasal Cannula 07/04/16 10:57 98.4 91 22 152/88 (109) 98 3.0 98.4 Labs Laboratory Tests Test 07/03/16 03:50 07/04/16 06:30 White Blood Count 3.5 x10^3/uL (4.0-11.0) 3.5 x10^3/uL (4.0-11.0) Red Blood Count 3.07 x10^6/uL (4.30-5.70) 3.22 x10^6/uL (4.30-5.70) Hemoglobin 10.2 g/dL (13.0-17.5) 10.6 g/dL (13.0-17.5) Hematocrit 31.2 % (39.0-53.0) 32.3 % (39.0-53.0) Mean Corpuscular Volume 102 fL (79-100) 100 fL (79-100) Mean Corpuscular Hemoglobin 33 pg (25-35) 33 pg (25-35) Mean Corpuscular Hemoglobin Concent 33 g/dL (31-37) 33 g/dL (31-37) Red Cell Distribution Width 19.4 % (11.5-14.5) 19.4 % (11.5-14.5) Platelet Count 72 x10^3/uL (140-400) 83 x10^3/uL (140-400) Neutrophils (%) (Auto) 58 % (31-73) 50 % (31-73) Lymphocytes (%) (Auto) 30 % (24-48) 36 % (24-48) Monocytes (%) (Auto) 8 % (0-9) 9 % (0-9) Eosinophils (%) (Auto) 4 % (0-3) 5 % (0-3) Basophils (%) (Auto) 0 % (0-3) 1 % (0-3) Neutrophils # (Auto) 2.0 x10^3uL (1.8-7.7) 1.7 x10^3uL (1.8-7.7) Lymphocytes # (Auto) 1.0 x10^3/uL (1.0-4.8) 1.2 x10^3/uL (1.0-4.8) Monocytes # (Auto) 0.3 x10^3/uL (0.0-1.1) 0.3 x10^3/uL (0.0-1.1) Eosinophils # (Auto) 0.1 x10^3/uL (0.0-0.7) 0.2 x10^3/uL (0.0-0.7) Basophils # (Auto) 0.0 x10^3/uL (0.0-0.2) 0.0 x10^3/uL (0.0-0.2) Sodium Level 141 mmol/L (136-145) 140 mmol/L (136-145) Potassium Level 4.8 mmol/L (3.5-5.1) 4.5 mmol/L (3.5-5.1) Chloride Level 104 mmol/L (98-107) 101 mmol/L (98-107) Carbon Dioxide Level 36 mmol/L (21-32) 36 mmol/L (21-32) Anion Gap 1 (6-14) 3 (6-14) Blood Urea Nitrogen 11 mg/dL (8-26) 7 mg/dL (8-26) Creatinine 0.9 mg/dL (0.7-1.3) 0.8 mg/dL (0.7-1.3) Estimated GFR (Cockcroft-Gault) 83.9 96.1 BUN/Creatinine Ratio 12 (6-20) 9 (6-20) Glucose Level 105 mg/dL (70-99) 100 mg/dL (70-99) Calcium Level 7.6 mg/dL (8.5-10.1) 7.9 mg/dL (8.5-10.1) Magnesium Level 1.0 mg/dL (1.8-2.4) 1.2 mg/dL (1.8-2.4) Total Bilirubin 0.4 mg/dL (0.2-1.0) 0.4 mg/dL (0.2-1.0) Aspartate Amino Transf (AST/SGOT) 37 U/L (15-37) 38 U/L (15-37) Alanine Aminotransferase (ALT/SGPT) 25 U/L (16-63) 29 U/L (16-63) Alkaline Phosphatase 50 U/L (46-116) 52 U/L (46-116) Total Protein 6.3 g/dL (6.4-8.2) 6.2 g/dL (6.4-8.2) Albumin 2.4 g/dL (3.4-5.0) 2.5 g/dL (3.4-5.0) Albumin/Globulin Ratio 0.6 (1.0-1.7) 0.7 (1.0-1.7) Laboratory Tests Test 07/04/16 06:30 White Blood Count 3.5 x10^3/uL (4.0-11.0) Red Blood Count 3.22 x10^6/uL (4.30-5.70) Hemoglobin 10.6 g/dL (13.0-17.5) Hematocrit 32.3 % (39.0-53.0) Mean Corpuscular Volume 100 fL (79-100) Mean Corpuscular Hemoglobin 33 pg (25-35) Mean Corpuscular Hemoglobin Concent 33 g/dL (31-37) Red Cell Distribution Width 19.4 % (11.5-14.5) Platelet Count 83 x10^3/uL (140-400) Neutrophils (%) (Auto) 50 % (31-73) Lymphocytes (%) (Auto) 36 % (24-48) Monocytes (%) (Auto) 9 % (0-9) Eosinophils (%) (Auto) 5 % (0-3) Basophils (%) (Auto) 1 % (0-3) Neutrophils # (Auto) 1.7 x10^3uL (1.8-7.7) Lymphocytes # (Auto) 1.2 x10^3/uL (1.0-4.8) Monocytes # (Auto) 0.3 x10^3/uL (0.0-1.1) Eosinophils # (Auto) 0.2 x10^3/uL (0.0-0.7) Basophils # (Auto) 0.0 x10^3/uL (0.0-0.2) Sodium Level 140 mmol/L (136-145) Potassium Level 4.5 mmol/L (3.5-5.1) Chloride Level 101 mmol/L (98-107) Carbon Dioxide Level 36 mmol/L (21-32) Anion Gap 3 (6-14) Blood Urea Nitrogen 7 mg/dL (8-26) Creatinine 0.8 mg/dL (0.7-1.3) Estimated GFR (Cockcroft-Gault) 96.1 BUN/Creatinine Ratio 9 (6-20) Glucose Level 100 mg/dL (70-99) Calcium Level 7.9 mg/dL (8.5-10.1) Magnesium Level 1.2 mg/dL (1.8-2.4) Total Bilirubin 0.4 mg/dL (0.2-1.0) Aspartate Amino Transf (AST/SGOT) 38 U/L (15-37) Alanine Aminotransferase (ALT/SGPT) 29 U/L (16-63) Alkaline Phosphatase 52 U/L (46-116) Total Protein 6.2 g/dL (6.4-8.2) Albumin 2.5 g/dL (3.4-5.0) Albumin/Globulin Ratio 0.7 (1.0-1.7) Notes A and A in bed shoulder ROM same remains NVI Assessment and Plan discussed shoulder injections, he wants to talk to his son first. If he decides to receive those, we can do it tomorrow am cont PT ADELINA WHITE II, MD July 04, 2016 12:59
[2016-07-04 14:46] VITALS: BP 139/86
[2016-07-04] MEDS ORDERED: LIDOCAINE 1% PF 5 ML VIAL. INJ ONE (16:45)
[2016-07-04] MEDS ORDERED: methylPREDNISolone ACETATE 80 MG/ML VIAL. IM ONE ×2 (16:45)
[2016-07-04] MEDS ORDERED: traZODone 50 MG TABLET. PO PRN (18:30)
[2016-07-04 19:45] VITALS: BP 144/90
--- NOTE | 2016-07-04 21:03 | PDOC ---
GENERAL General: vss and afebrile. awake and alert and still weak and hurts particularly in his shoulders. chest with decreased breath sounds. heart regular. therapy feels snu needed and eval ordered. otherwise continue same. Problems: VITAL SIGNS Vital Signs: Vital Signs Date Time Temp Pulse Resp B/P (MAP) Pulse Ox O2 Delivery O2 Flow Rate FiO2 07/04/16 20:00 Nasal Cannula 3.0 07/04/16 19:45 98.8 81 20 144/90 (108) 98 98.8 I & O I & O Intake and Output 07/04/16 07:00 Intake Total 250 ml Output Total 1600 ml Balance -1350 ml Intake Oral 200 ml IV Total 50 ml Output Urine Total 1600 ml # Voids 2 ALLERGIES Allergies: Allergies Coded Allergies Type Severity Reaction Last Updated Verified No Known Drug Allergies 06/29/15 No MEDS Medications: Current Medications Medications (Trade) Dose Ordered Sig/Christin Start Time Stop Time Status Last Admin Dose Admin Acetaminophen/ Hydrocodone Bitart (Lortab 5/325) 2 tab PRN Q4HRS PRN 07/02/16 08:15 07/04/16 16:57 2 TAB Albuterol Sulfate (Ventolin Neb Soln) 2.5 mg 1X ONCE 06/30/16 12:30 06/30/16 12:31 DC 06/30/16 13:02 2.5 MG Calcium Gluconate (Calcium Gluconate) 1,000 mg 1X ONCE 06/30/16 12:30 06/30/16 12:31 UNV Calcium Gluconate 1000 mg/Sodium Chloride 110 ml @ 440 mls/hr 1X ONCE 06/30/16 12:30 06/30/16 12:44 DC 06/30/16 12:51 440 MLS/HR Chlordiazepoxide (Librium) 25 mg Q6H 06/30/16 16:00 06/30/16 18:13 DC Dextrose (Dextrose 50%-Water Syringe) 25 gm 1X ONCE 06/30/16 12:30 06/30/16 12:31 DC 06/30/16 12:47 25 GM Fentanyl Citrate (Fentanyl 2ml Vial) 50 mcg PRN Q2HR PRN 07/01/16 21:15 07/02/16 03:45 50 MCG Folic Acid (Folic Acid) 1 mg DAILY 07/06/16 09:00 Insulin Human Regular (NovoLIN R VIAL) 10 unit 1X ONCE 06/30/16 12:30 06/30/16 12:31 DC 06/30/16 12:50 10 UNIT Lidocaine HCl (Xylocaine-Mpf 1% Vial) 5 ml ONCE ONCE 07/04/16 16:45 07/04/16 16:46 DC Lorazepam (Ativan) 2 mg PRN Q6HRS PRN 07/02/16 07:15 Magnesium Oxide (Magnesium Oxide) 400 mg DAILY 07/05/16 09:00 Magnesium Sulfate/ Dextrose 50 ml @ 25 mls/hr 1X ONCE 07/04/16 10:30 07/04/16 12:29 DC 07/04/16 10:44 25 MLS/HR Methylprednisolone Acetate (DEPO-Medrol 80MG VIAL) 80 mg 1X ONCE 07/04/16 16:45 07/04/16 16:46 DC Multivitamins (Thera M Plus) 1 tab DAILY 07/06/16 09:00 Multivitamins 10 ml/Folic Acid 1 mg/Thiamine HCl 100 mg/Sodium Chloride 1,011.2 ml @ 1,000 mls/ hr 1X ONCE 06/30/16 11:45 06/30/16 12:45 DC 06/30/16 11:54 1,000 MLS/HR Multivitamins 10 ml/Thiamine HCl 100 mg/Folic Acid 1 mg/Sodium Chloride 1,011.2 ml @ 100 mls/ hr DAILY 07/01/16 09:00 07/06/16 08:59 07/04/16 08:15 100 MLS/HR Norepinephrine Bitartrate 250 ml @ 0 mls/hr CONT PRN 06/30/16 17:00 07/04/16 14:20 DC 06/30/16 17:37 2.3 MLS/HR Ondansetron HCl (Zofran) 4 mg PRN Q8HRS PRN 06/30/16 12:45 07/01/16 12:44 DC 06/30/16 15:09 4 MG Pantoprazole Sodium (Protonix) 40 mg DAILYAC 07/02/16 07:30 07/03/16 07:50 40 MG Pneumococcal Polyvalent Vaccine (Do NOT chart on this placeholder) 1 each 1X ONCE 06/30/16 14:45 06/30/16 15:17 DC Pneumococcal Polyvalent Vaccine (Pneumovax 23) 0.5 ml ONCE ONCE 06/30/16 15:30 06/30/16 15:31 DC 07/03/16 07:52 0.5 ML Sodium Bicarbonate 50 meq/Sodium Chloride 1,050 ml @ 150 mls/hr Q7H 06/30/16 14:30 07/02/16 10:43 DC 07/02/16 03:45 150 MLS/HR Sodium Chloride 1,000 ml @ 75 mls/hr [id number] 07/02/16 10:45 07/03/16 10:59 DC 07/03/16 02:55 75 MLS/HR Thiamine Mononitrate (Vitamin B-1) 100 mg DAILY 07/06/16 09:00 Thiamine HCl 100 mg/Sodium Chloride 51 ml @ 100 mls/hr DAILY 07/01/16 09:00 07/06/16 08:59 UNV Trazodone HCl (Desyrel) 50 mg PRN QHS PRN 07/04/16 18:30 LAB Lab: Laboratory Tests Test 07/04/16 06:30 White Blood Count 3.5 x10^3/uL (4.0-11.0) Red Blood Count 3.22 x10^6/uL (4.30-5.70) Hemoglobin 10.6 g/dL (13.0-17.5) Hematocrit 32.3 % (39.0-53.0) Mean Corpuscular Volume 100 fL (79-100) Mean Corpuscular Hemoglobin 33 pg (25-35) Mean Corpuscular Hemoglobin Concent 33 g/dL (31-37) Red Cell Distribution Width 19.4 % (11.5-14.5) Platelet Count 83 x10^3/uL (140-400) Neutrophils (%) (Auto) 50 % (31-73) Lymphocytes (%) (Auto) 36 % (24-48) Monocytes (%) (Auto) 9 % (0-9) Eosinophils (%) (Auto) 5 % (0-3) Basophils (%) (Auto) 1 % (0-3) Neutrophils # (Auto) 1.7 x10^3uL (1.8-7.7) Lymphocytes # (Auto) 1.2 x10^3/uL (1.0-4.8) Monocytes # (Auto) 0.3 x10^3/uL (0.0-1.1) Eosinophils # (Auto) 0.2 x10^3/uL (0.0-0.7) Basophils # (Auto) 0.0 x10^3/uL (0.0-0.2) Sodium Level 140 mmol/L (136-145) Potassium Level 4.5 mmol/L (3.5-5.1) Chloride Level 101 mmol/L (98-107) Carbon Dioxide Level 36 mmol/L (21-32) Anion Gap 3 (6-14) Blood Urea Nitrogen 7 mg/dL (8-26) Creatinine 0.8 mg/dL (0.7-1.3) Estimated GFR (Cockcroft-Gault) 96.1 BUN/Creatinine Ratio 9 (6-20) Glucose Level 100 mg/dL (70-99) Calcium Level 7.9 mg/dL (8.5-10.1) Magnesium Level 1.2 mg/dL (1.8-2.4) Total Bilirubin 0.4 mg/dL (0.2-1.0) Aspartate Amino Transf (AST/SGOT) 38 U/L (15-37) Alanine Aminotransferase (ALT/SGPT) 29 U/L (16-63) Alkaline Phosphatase 52 U/L (46-116) Total Protein 6.2 g/dL (6.4-8.2) Albumin 2.5 g/dL (3.4-5.0) Albumin/Globulin Ratio 0.7 (1.0-1.7) CLARE MAN MD July 04, 2016 21:03
[2016-07-04 23:27] VITALS: BP 150/98
[2016-07-05 03:07] VITALS: BP 155/97
[2016-07-05] MEDS: HYDROcodone/APAP 5/325MG 1 TAB TABLET PO PRN (05:22)
[2016-07-05] MEDS: PANTOPRAZOLE 40 MG TABLET.DR. PO SCH (05:22)
[2016-07-05 07:28] VITALS: BP 139/78
[2016-07-05 08:41] LABS: CALCIUM 8.4 mg/dL (8.5-10.1); CREATININE 0.8 mg/dL (0.7-1.3); GFR 96.1; MAGNESIUM 1.3 mg/dL (1.8-2.4); POTASSIUM 4.2 mmol/L (3.5-5.1)
[2016-07-05] MEDS ORDERED: POLYETHYLENE GLYCOL 3350 17 GM PACKET. PO SCH (09:00)
[2016-07-05] MEDS: MULTIVIT INFUSN,ADULT 4,VIT K 10 ML, THIAMINE 100 MG, FOLIC ACID 1 MG in IV NORMAL SALI... IV SCH (09:00)
[2016-07-05] MEDS ORDERED: MAGNESIUM OXIDE 400 MG TABLET PO SCH (09:00)
[2016-07-05 11:00] VITALS: BP 135/76
--- NOTE | 2016-07-05 15:03 | PDOC4 ---
HUNTER BILLINGSLEY APRN 07/05/16 1503: PROCEDURE Procedure After informed consent the patient was injected in the subacromial space of the right shoulder with a mixture of 80 mg of Depo-Medrol and 2 mL's of 1% lidocaine under sterile conditions. The area was closed with alcohol and a dressing was applied. He tolerated the procedure well ADELINA WHITE II, MD 07/10/16 0849: HUNTER BILLINGSLEY APRN July 05, 2016 15:03 ADELINA WHITE II, MD July 10, 2016 08:49
[2016-07-06] MEDS ORDERED: MULTIVITAMIN with MINERAL TABLET. PO SCH (09:00)
[2016-07-06] MEDS ORDERED: THIAMINE 100 MG TABLET. PO SCH (09:00)
[2016-07-06] MEDS ORDERED: FOLIC ACID 1 MG TABLET. PO SCH (09:00)
== END 2016-07-05 12:55 | DRG 682 ==
LOC: ER 11:50 → 1 WEST ICU 12:20 → 6 SOUTH 07-03 12:11
PROVIDERS: ADMIT Family Medicine; ATTEND Family Medicine
PROC: 3E0U33Z Introduction of Anti-inflammatory into Joints, Percutaneous Approach (ICD-10-PCS; principal; 2016-07-05)
PROC: 3E0U3BZ Introduction of Anesthetic Agent into Joints, Percutaneous Approach (ICD-10-PCS; 2016-07-05)
DX: N17.1 Acute kidney failure with acute cortical necrosis (principal); G93.41 Metabolic encephalopathy; E87.2 Acidosis; E44.0 Moderate protein-calorie malnutrition; I95.89 Other hypotension; E87.5 Hyperkalemia; E78.00 Pure hypercholesterolemia, unspecified; E78.5 Hyperlipidemia, unspecified; D69.59 Other secondary thrombocytopenia; J44.9 Chronic obstructive pulmonary disease, unspecified; E83.42 Hypomagnesemia; E66.9 Obesity, unspecified; M54.9 Dorsalgia, unspecified; K44.9 Diaphragmatic hernia without obstruction or gangrene; M25.512 Pain in left shoulder; M25.511 Pain in right shoulder; F17.210 Nicotine dependence, cigarettes, uncomplicated; F10.20 Alcohol dependence, uncomplicated; Y90.9 Presence of alcohol in blood, level not specified; Z90.49 Acquired absence of other specified parts of digestive tract; Z93.3 Colostomy status; Z68.38 Body mass index [BMI] 38.0-38.9, adult; Z79.4 Long term (current) use of insulin; Z85.038 Personal history of other malignant neoplasm of large intestine; Z85.118 Personal history of other malignant neoplasm of bronchus and lung; Z85.048 Personal history of other malignant neoplasm of rectum, rectosigmoid junction, and anus; Z85.46 Personal history of malignant neoplasm of prostate; Z82.49 Family history of ischemic heart disease and other diseases of the circulatory system; I12.9 Hypertensive chronic kidney disease with stage 1 through stage 4 chronic kidney disease, or unspecified chronic kidney disease; N18.9 Chronic kidney disease, unspecified
CPT/HCPCS: 36415; 73030; 80048; 80053; 80329; 81001; 82550; 83605; 83690; 83735; 83880; 84132; 84443; 84484; 85007; 85027; 85610; 85730; 87641; 90732; 93005; 94250; 94640; 99406; G0480; G0481; J0610; J1815; J2405; J3010; J7030; J7042; J7060; 97110; 97116; 97530; 97535